=== PATIENT | female | born 1990 | race Caucasian/White ===

== ENCOUNTER → 2016-10-11 | Outpatient (CLI) | payer OTHER ==
[~2016-10-11] MED LIST: ACET50TA PO; ATOM40CA PO; IBUP-1114 PO; IBUP60TA PO; LAMI25TA PO; LATU40TA PO; MACR100C3 PO; MAPA325T2 PO; MINI1CAP PO; NICO7DIS23 TD; PRENTAB45 PO; STUACAP PO; ZYRT10CA PO; no home medications
[2016-10-11 14:40] LABS: BASO % 0.1 % (0.0-1.0); EOS # 0.1 K/mm3 (0.0-0.50); EOS % 0.9 % (0.0-3.0); LARGE UNSTAINED CELL # 0.1 K/mm3 (0.0-0.4); LARGE UNSTAINED CELL % 0.9 % (0.0-4.0); LYMPH % 15.4 % (24.0-44.0); MEAN CORPUSCULAR HEMOGLOBIN 31.8 pg (27.0-33.0); MEAN CORPUSCULAR HGB CONC 33.3 g/dl (32.0-36.5); MEAN CORPUSCULAR VOLUME 95.5 fl (80.0-96.0); MONO # 0.5 K/mm3 (0.0-0.8); MONO % 3.9 % (0.0-5.0); NEUTROPHILS # 10.4 K/mm3 (1.8-7.7); NEUTROPHILS % 78.8 % (36.0-66.0); PLATELET COUNT, AUTOMATED 357 k/mm3 (150-450); RED CELL DISTRIBUTION WIDTH 13.7 % (11.5-14.5); WHITE BLOOD COUNT 13.2 K/mm3 (4.0-10.0)
== END ==
LOC: M LAB 12:09
PROVIDERS: ATTEND Advanced Practice Midwife
DX: Z34.82 Encounter for supervision of other normal pregnancy, second trimester (principal); Z36 Encounter for antenatal screening of mother

== ENCOUNTER → 2016-12-01 | Outpatient (REF) | payer OTHER | LOC: M LAB REF 16:36 | PROVIDERS: ATTEND Advanced Practice Midwife | DX: Z34.83 Encounter for supervision of other normal pregnancy, third trimester (principal); Z36 Encounter for antenatal screening of mother ==

== ENCOUNTER → 2016-12-08 | Outpatient (REF) | payer OTHER | LOC: M LAB REF 16:30 | PROVIDERS: ATTEND Advanced Practice Midwife | DX: R03.0 Elevated blood-pressure reading, without diagnosis of hypertension (principal) ==

== ENCOUNTER 2016-12-30 12:24 | Inpatient (IN) | payer OTHER ==
[2016-12-30] VITALS (18 sets, daily range): BP systolic 106–143; BP diastolic 55–69
[~2016-12-30] VITALS: Ht 165.1 cm; Wt 95.0 kg
[~2016-12-30 12:24] MED LIST changes: +PRENTAB9 PO
[2016-12-30] MEDS ORDERED: PENICILLIN G POTASSIUM IV 5 MU in D5W MINI-BAG PLUS 100 ML IV STA (12:37)
[2016-12-30] MEDS ORDERED: OXYTOCIN DRIP 30 UNITS in APPROPRIATE DILUENT 1 EA IV SCH ×3 (12:45→19:49)
[2016-12-30] MEDS: LR 1,000 ML IV SCH ×2 (12:57→15:14)
[2016-12-30 13:19] LABS: MEAN CORPUSCULAR HEMOGLOBIN 31.4 pg (27.0-33.0); MEAN CORPUSCULAR HGB CONC 33.4 g/dl (32.0-36.5); MEAN CORPUSCULAR VOLUME 93.9 fl (80.0-96.0); RED CELL DISTRIBUTION WIDTH 14.5 % (11.5-14.5); WHITE BLOOD COUNT 10.6 K/mm3 (4.0-10.0)
[2016-12-30 13:45] LABS: ALT/SGPT 13 U/L (12-78); AST/SGOT 10 U/L (15-37); BILIRUBIN,TOTAL 0.2 MG/DL (0.2-1.0); CREATININE FOR GFR 0.44 MG/DL (0.55-1.02); GLOMERULAR FILTRATION RATE > 60.0 (>60); URIC ACID 2.9 MG/DL (2.6-6.0)
[2016-12-30] MEDS ORDERED: ACETAMINOPHEN 500 MG TAB PO PRN ×2 (14:00→20:00)
--- NOTE | 2016-12-30 14:54 | HPEPDOC ---
Obstetrical History & Physical General Date of Admission Dec 30, 2016 at 12:24 Primary Care Physician: Ty Eldridge DO History of Present Illness Patient is a 26-year-old female who is a who is 40 weeks 2 days gestation with an MARY LOU of 12/28/2016 based off her LMP and consistent with her first trimester ultrasound. Patient initiated care in her first trimester at [facility]. has been complicated by preeclampsia with severe features. Patient arrived for her routine OB appointment today with a second elevated blood pressure with recurrent headaches for the last 2 days along with a new onset of what patient describes as heartburn. Her initial high blood pressure was at 37 weeks which was 140/84 and today which was 152/86. She reports irregular contractions and active movement. She declines visual changes, leaking of fluid, or vaginal bleeding. After reviewing patient's blood pressure and symptoms with Dr. Eldrigde the plan was made with the patient to have her sent over to labor and delivery for induction of labor due to preeclampsia with severe features. Chief Complaint: Induction of labor Information Provided By: Patient Age: 26 : 5 Term: 3 Abortions: 1 Livin Care Care: Good Care Number of Visits: 13 Dating Final EDC: Dec 28, 2016 Final EDC by: LMP LMP: Mar 23, 2016 EGA at Admission: 40.2 Antepartum Course Diagnos(e)s preeclampsia with severe features Height (inches): 65 Pre- weight (lbs.): 187 Admission Weight (lbs.): 218 Change in Weight (lbs.): 31 Past Medical History Past Obstetrical History #1: Past Obstetrical History: Multigravida Gestation: 41 Type of Delivery: Spontaneous Vaginal Del. (October 2005) Sex of Infant: Male (6 lbs. 6 oz.) Complications: No Past Obstetrical History #2: Gestation: 40 Type of Delivery: Spontaneous Vaginal Del. (August 2012) Sex of : Male (weighing 8 lbs. 9 oz.) Complications: No Past Obstetrical History #3: Gestation: 39 Type of Delivery: Spontaneous Vaginal Del. (November 2014) Complications: No RIVER CAPTAIN History: Spontaneous (2005), Abnormal Pap Past Medical History Surgical History: Denies/None Family History Significant Family History: Diabetes, Hypertension, Hyperlipidemia Social History Social history Patient has a history of overdose. Marital Status: Single Family situation: Spouse/partner home Psychosocial History: Depression * Smoker: current smoker Allergies Coded Allergies: No Known Drug Allergy (Verified Allergy, Unknown, 01/09/13) Medications Scheduled Multivitamins/ ( 27-0.8 mg) 1 Tab Tab 1 TAB PO DAILY Physical Examination Physical Examination GENERAL: Alert and oriented times three. BREAST: . ABDOMEN: Gravid and non-tender to touch. FETUS: Is vertex (VTX) by sterile vaginal examination (SVE), fetus is vertex ( VTX) by Ronnell. HEART RATE: Regular rate and rhythm. LUNGS: Clear to auscultation (CTA). EXTREMITIES: No edema. No clonus. Deep tendon reflexes (DTRs) + 2. Laboratory Data 24H LABS Laboratory Tests 2 12/30/16 12:37: Serology Scanned Report Hepatitis B Testing 12/30/16 12:55: Creatinine 0.44L, Aspartate Amino Transf (AST/SGOT) 10L, Alanine Aminotransferase (ALT/SGPT) 13, Lactate Dehydrogenase 117, Total Bilirubin 0.2, Uric Acid 2.9, Glomerular Filtration Rate > 60.0 CBC/BMP Laboratory Tests 12/30/16 12:55 Aspartate Amino Transf (AST/SGOT) 10 L, Alanine Aminotransferase (ALT/SGPT) 13, Lactate Dehydrogenase 117, Total Bilirubin 0.2, Uric Acid 2.9, Red Blood Count 3.50 L, Mean Corpuscular Volume 93.9, Mean Corpuscular Hemoglobin 31.4, Mean Corpuscular Hemoglobin Concent 33.4, Red Cell Distribution Width 14.5 Urine Culture: No Growth Pertinent Laboratoy Data Blood Type: O+ RBC Antibody Screen: Negative HIV: Negative Hepatitis B: Negative Hepatitis C: Unknown Rapid Plasma Reagin: Nonreactive Rubella: Immune Chlamydia/Gonorrhea: Negative Group B Streptococcus: Positive Quad Screen Test: Declined Cystic Fibrosis: Declined Anatomy Ultrasound Ultrasound Date: Aug 11, 2016 Placenta Location: Anterior Normal Anatomy: Yes Placenta Previa: No Other Ultrasounds 12/09/2016: Growth/KAYE: IUP at 37.3 days gestation, EFW: 3254 g/7 lbs. 3 oz. 68.1% ; KAYE: 19.59; vertex, placenta anterior grade 2 Vaginal Examination Dilation: 3 cm Effacement: 75% Station: -2 Cervical Consistency: Soft Cervical Position: Anterior Presentation: Cephalic presentation Position: Vertex (occiput) Assessment Heart Rate (FHR): 130 Variability: Moderate Accelerations: Positive Decelerations: None Tocometer Contractions: Yes Frequency: irregular Multi-drug resistant Organism: No history of MDRO Assessment/Plan Assessment IUP at 40 weeks 2 days gestation Category 1 heart rate tracing GBS positive Preeclampsia with severe features Plan Admit to labor and delivery. IV and labs per order. Out of bed as tolerated. Clear liquid diet. Start GBS prophylaxis. Pitocin to be started per order. Dr. Eldridge aware of plan of care. Tylenol ordered for headache. Calcium carbonate ordered for patient's new onset of heartburn. Reviewed potential risks versus benefits of expectant management and induction of labor. Patient would like induction of labor. PFS consult due to patient's history of depression and history of drug overdose in 2016. Anticipate cervical change. Consider AROM. SHERLY WETZEL CNM Dec 30, 2016 14:54 Ty Eldridge DO Dec 30, 2016 17:50
[2016-12-30] MEDS ORDERED: FENTANYL 2MCG/ML ROPIVACAINE 0.2% NACL 250 ML CADD As Ordered ONE (16:02)
--- NOTE | 2016-12-30 16:06 | IPNPDOC ---
Obstetrical Progress Note Date of Service The patient was seen on 12/30/16 at 15:59. Progress Note SUBJECTIVE: Patient reports she is getting uncomfortable and feeling her contractions. She reports the Tylenol helped with her headache and rates it a 3.5, which is down from 7. Patient desires epidural for pain management. OBJECTIVE: FHR: 120, moderate variability, positive accelerations, no decelerations. Contractions every 1.5-4 minutes. SVE: 4/80/-2. AROM to a large amount of meconium fluid after consent from patient. Pitocin at 6 mu/min. VITAL SIGNS: Please see below. All VS have been obtained with patient in bed and on her side. ASSESSMENT: IUP at 40.2 weeks gestation, preeclampsia with severe features, Category I FHR tracing PLAN: Dr. Eldridge aware of patient's status. consult for anesthesia. Patient to obtain epidural for pain management. Will continue with Pitocin induction. VS, I&O, 24H, Fishbone Vital Signs/I&O Vital Signs Date Time Temp Pulse Resp B/P Pulse Ox O2 Delivery O2 Flow Rate FiO2 12/30/16 14:56 98.4 73 18 118/59 Laboratory Data 24H LABS Laboratory Tests 2 12/30/16 12:37: Serology Scanned Report Hepatitis B Testing 12/30/16 12:55: Creatinine 0.44L, Aspartate Amino Transf (AST/SGOT) 10L, Alanine Aminotransferase (ALT/SGPT) 13, Lactate Dehydrogenase 117, Total Bilirubin 0.2, Uric Acid 2.9, Glomerular Filtration Rate > 60.0, Syphilis Serology NONREACTIVE , Urine Random Creatinine 187.0, Urine Random Total Protein 31.5H CBC/BMP Laboratory Tests 12/30/16 12:55 Aspartate Amino Transf (AST/SGOT) 10 L, Alanine Aminotransferase (ALT/SGPT) 13, Lactate Dehydrogenase 117, Total Bilirubin 0.2, Uric Acid 2.9, Red Blood Count 3.50 L, Mean Corpuscular Volume 93.9, Mean Corpuscular Hemoglobin 31.4, Mean Corpuscular Hemoglobin Concent 33.4, Red Cell Distribution Width 14.5 SHERLY WETZEL CNM Dec 30, 2016 16:06
[2016-12-30] MEDS ORDERED: EPIDURAL COMMENT XX SCH (17:00)
[2016-12-30] MEDS ORDERED: NALOXONE INJ 0.4 MG/1 ML VIAL (J2310) IV PRN (17:00)
[2016-12-30] MEDS ORDERED: REFRIGERATOR IV KEYS XX PRN (17:00)
[2016-12-30] MEDS ORDERED: EPIDURAL/PCA KEYS XX PRN (17:00)
[2016-12-30] MEDS ORDERED: ePHEDrine SULFATE 25 MG/5 ML(5MG/ML) SYRINGE IV PRN (17:00)
[2016-12-30] MEDS ORDERED: FENTANYL/ROPIVACAINE/NACL CADD 250 ML EPIDURAL SCH (17:00)
[2016-12-30] MEDS ORDERED: PENICILLIN G POTASSIUM IV 2.5 MU in D5W 100 ML IV SCH (17:00)
[2016-12-30] MEDS ORDERED: ONDANSETRON 4MG/2ML VIAL (J2405) IV PRN (17:00)
[2016-12-30] MEDS ORDERED: diphenhydrAMINE INJ 50MG/ML VIAL (J1200) IV PRN (17:00)
[2016-12-30] MEDS ORDERED: ANUSOL HC CREAM 30GM TOP PRN (20:00)
[2016-12-30] MEDS ORDERED: METHYLERGONOVINE MALEATE 0.2 MG TAB PO PRN (20:00)
[2016-12-30] MEDS ORDERED: MEASLES,MUMPS,RUBELLA VACCINE INJ (MMR-II) (90707) SC SCH (20:00)
[2016-12-30] MEDS ORDERED: DIBUCAINE 1% OINTMENT 30GM TOP PRN (20:00)
[2016-12-30] MEDS ORDERED: RHOGAM 300 MCG (1500 IU) INJ (J2790) IM SCH (20:00)
[2016-12-30] MEDS ORDERED: PROMETHAZINE 25 MG TAB PO PRN (20:00)
[2016-12-30] MEDS ORDERED: DOCUSATE SODIUM 100 MG CAP PO PRN (20:00)
[2016-12-30 20:41] LABS: CORD GAS ABE A -1.2; CORD GAS ABE V -3.4; CORD GAS HCO3 A 26.8 MEQ/L; CORD GAS HCO3 V 22.2 MEQ/L; CORD GAS PCO2 A 57.5 mmHg; CORD GAS PCO2 V 42.1 mmHg; CORD GAS PH A 7.287 UNITS; CORD GAS PH V 7.34 UNITS; CORD GAS PO2 A 15.9 mmHg; CORD GAS PO2 V 23.2 mmHg; CORD GAS SBC A 21.7 MEQ/L; CORD GAS SBC V 20.6 MEQ/L; CORD GAS TCO2 A 28.6 MEQ/L; CORD GAS TCO2 V 23.5 MEQ/L
--- NOTE | 2016-12-30 20:42 | DN ---
DATE: 12/30/2016 DELIVERY NOTE Amanda is a 26-year-old female 5, para 3-0-1-3, who was admitted at 40-2/7 weeks gestation preeclampsia. She underwent Pitocin induction followed by artificial rupture of membrane. She then progressed to fully dilated after an epidural, delivered a live female infant in left occiput anterior position over an intact perineum. scores 9 and 9. weight 7 pounds 13 ounces. Placenta delivered spontaneously intact. Three-vessel cord. Perineum, vagina and cervix inspected. No laceration noted. Estimated blood loss 300 mL. Both mother and baby in stable condition.
[2016-12-31] MEDS: IBUPROFEN 800 MG TAB PO PRN ×2 (05:14→13:38)
[2016-12-31 06:00] VITALS: BP 122/57
[2016-12-31] MEDS ORDERED: PRENATAL VITAMIN TAB PO SCH (09:00)
[2016-12-31 18:00] VITALS: BP 122/61
[2017-01-01] MEDS: IBUPROFEN 800 MG TAB PO PRN (03:25)
[2017-01-01 05:46] VITALS: BP 131/73
[2017-01-01] MEDS ORDERED: ACET50TA PO (11:09)
[2017-01-01] MEDS ORDERED: IBUP-1114 PO (11:09)
== END 2017-01-01 15:00 | disposition home or self-care (01) | DRG 560 ==
LOC: M LDI 12:24 → M OBS 21:46
PROVIDERS: ADMIT Advanced Practice Midwife; ATTEND Advanced Practice Midwife
PROC: 10E0XZZ Delivery of Products of Conception, External Approach (ICD-10-PCS; principal; 2016-12-30)
PROC: 3E033VJ Introduction of Other Hormone into Peripheral Vein, Percutaneous Approach (ICD-10-PCS; 2016-12-30)
PROC: 10907ZC Drainage of Amniotic Fluid, Therapeutic from Products of Conception, Via Natural or Artificial Opening (ICD-10-PCS; 2016-12-30)
DX: O14.24 HELLP syndrome, complicating childbirth (principal); Z37.0 Single live birth; Z3A.40 40 weeks gestation of pregnancy; O48.0 Post-term pregnancy; O99.820 Streptococcus B carrier state complicating pregnancy

== ENCOUNTER 2017-06-13 14:13 | Emergency (ER) | payer OTHER ==
[~2017-06-13] VITALS: Ht 162.6 cm; Wt 75.0 kg
[2017-06-13 14:13] VITALS: BP 131/68
[~2017-06-13 14:13] MED LIST changes: -MACR100C3 PO; +MACR100C43 PO; +NICO7DIS2 TD; -NICO7DIS23 TD
== END 2017-06-13 16:11 | disposition left against medical advice (07) ==
LOC: M ED 14:13
DX: R10.9 Unspecified abdominal pain (principal); Z53.29 Procedure and treatment not carried out because of patient's decision for other reasons

== ENCOUNTER → 2017-09-07 | Outpatient (CLI) | payer OTHER ==
--- NOTE | 2017-09-07 11:08 | REP ---
Clinical: Anatomical evaluation. Comparison: None . Findings: Examination demonstrates a single live intrauterine in cephalic presentation. motion is identified by technologist. Placenta is noted anterior fundal and grade one without evidence for placenta previa or abruption. Amniotic fluid volume is normal. Cervix measures 3.6 cm in length and appears closed. No evidence for nuchal cord. Gestational age by LMP 25 weeks 0 days with MARY LOU 12/21/2017 . Gestational age by current measurements 24 weeks 5 days with MARY LOU 12/23/2017 . FHR equals 161 beats per minute. BPD 6.0 cm 24 weeks 3 days HC 22.3 cm 24 weeks 2 days AC 20.3 cm 24 weeks 6 days FL 4.5 cm 25 weeks 0 days HL 4.2 cm 25 weeks 0 days HC/AC ratio 1.10 Estimated weight 743 grams ( 40th percentile). Anatomical assessment demonstrates normal structures including cranium, choroid plexus, cavum, cerebellum/posterior fossa, facial features, lungs, four-chamber heart/ventricular outflow tracts, diaphragm, stomach, cord insertion/three-vessel cord, kidneys/bladder, spine, and extremities. Incidental venous lakes are identified in the placenta. Impression: 1. Single live intrauterine in cephalic presentation demonstrating appropriate growth. 2. Anatomical assessment is complete and normal. 3. Incidental venous lakes noted within the placenta. Signed by Keven Delgado MD 09/07/2017 11:00 A
== END ==
LOC: M RAD 09:47
PROVIDERS: ATTEND Nurse Practitioner Women's Health
DX: Z34.80 Encounter for supervision of other normal pregnancy, unspecified trimester (principal)

== ENCOUNTER 2017-10-08 14:45 | Inpatient (IN) | payer OTHER ==
[2017-10-08] MEDS ORDERED: HALOPERIDOL 5 MG TAB PO (16:00)
[2017-10-08] MEDS ORDERED: LORazepam 2 MG TAB PO (16:00)
[2017-10-08] MEDS: NICOTINE 21MG/24HR 1 EA TRANSDERMAL TD (18:09)
[2017-10-08] MEDS: PRENATAL VITAMINS CHEWABLE TABLET PO (21:40)
[2017-10-09] MEDS: PRENATAL VITAMINS CHEWABLE TABLET PO (08:33)
[2017-10-09] MEDS: NICOTINE 21MG/24HR 1 EA TRANSDERMAL TD (08:33)
[2017-10-10] MEDS: NICOTINE 21MG/24HR 1 EA TRANSDERMAL TD (08:19)
[2017-10-10] MEDS: PRENATAL VITAMINS CHEWABLE TABLET PO (08:19)
[2017-10-10] MEDS: MOM 30ML SUSPENSION UDC PO (09:40)
[2017-10-10] MEDS: FLUoxetine 10 MG CAP PO (09:40)
[2017-10-10 10:55] LABS: BASO % 0.3 % (0.0-1.0); EOS # 0.1 10^3/uL (0.0-0.50); EOS % 0.7 % (0.0-3.0); HEMATOCRIT 33.8 % (36.0-47.0); HEMOGLOBIN 11.5 g/dl (12.0-16.0); IMMATURE GRANULOCYTE # 0.1 10^3/uL (0-0); IMMATURE GRANULOCYTE % 0.8 % (0-0); LYMPH % 16.6 % (24.0-44.0); MEAN CORPUSCULAR HEMOGLOBIN 32.6 pg (27.0-33.0); MEAN CORPUSCULAR VOLUME 95.8 fl (80.0-96.0); MONO # 0.8 10^3/uL (0.0-0.8); MONO % 6.7 % (0.0-5.0); NEUTROPHILS % 74.9 % (36.0-66.0); PLATELET COUNT, AUTOMATED 354 10^3/uL (150-450); RED BLOOD COUNT 3.53 10^6/uL (4.00-5.40); RED CELL DISTRIBUTION WIDTH 13.8 % (11.5-14.5)
[2017-10-10 11:30] LABS: ALBUMIN 2.8 GM/DL (3.2-5.2); ALBUMIN/GLOBULIN RATIO 0.82 (1.00-1.93); ALKALINE PHOSPHATASE 121 U/L (45-117); ALT/SGPT 9 U/L (12-78); ANION GAP 8 MEQ/L (8-16); AST/SGOT 9 U/L (7-37); BILIRUBIN,TOTAL 0.2 MG/DL (0.2-1.0); BLOOD UREA NITROGEN 6 MG/DL (7-18); CALCIUM LEVEL 8.3 MG/DL (8.5-10.1); CARBON DIOXIDE LEVEL 25 MEQ/L (21-32); CHLORIDE LEVEL 106 MEQ/L (98-107); CREATININE FOR GFR 0.36 MG/DL (0.55-1.02); FREE THYROXINE INDEX 2.5 % (1.3-4.8); GLOMERULAR FILTRATION RATE > 60.0 (>60); GLUCOSE, FASTING 80 MG/DL (70-105); SODIUM LEVEL 139 MEQ/L (136-145); T UPTAKE 20 % (30-39); THYROXINE (T4) 12.4 UG/DL (4.5-12.0); TOTAL PROTEIN 6.2 GM/DL (6.4-8.2)
[2017-10-11] MEDS: MAALOX 30 ML SUSP *UDC PO (00:19)
[2017-10-11] MEDS: NICOTINE 21MG/24HR 1 EA TRANSDERMAL TD (09:32)
[2017-10-11] MEDS: FLUoxetine 10 MG CAP PO (09:32)
[2017-10-11] MEDS: PRENATAL VITAMINS CHEWABLE TABLET PO (09:32)
[2017-10-12 08:29] LABS: HEMATOCRIT 33.5 % (36.0-47.0); HEMOGLOBIN 11.3 g/dl (12.0-16.0); MEAN CORPUSCULAR HEMOGLOBIN 32.2 pg (27.0-33.0); MEAN CORPUSCULAR HGB CONC 33.7 g/dl (32.0-36.5); MEAN CORPUSCULAR VOLUME 95.4 fl (80.0-96.0); PLATELET COUNT, AUTOMATED 339 10^3/uL (150-450); RED BLOOD COUNT 3.51 10^6/uL (4.00-5.40); RED CELL DISTRIBUTION WIDTH 14.2 % (11.5-14.5); WHITE BLOOD COUNT 13.4 10^3/uL (4.0-10.0)
[2017-10-12] MEDS: FLUoxetine 10 MG CAP PO (08:58)
[2017-10-12] MEDS: PRENATAL VITAMINS CHEWABLE TABLET PO (08:58)
[2017-10-12] MEDS: NICOTINE 21MG/24HR 1 EA TRANSDERMAL TD (08:59)
[2017-10-12] MEDS: DOCUSATE SODIUM 100 MG CAP PO (10:04)
[2017-10-12] MEDS: CEPACOL LOZENGE PO ×2 (10:04→18:38)
[2017-10-12] MEDS: traZODone 50 MG TAB PO (23:51)
[2017-10-13] MEDS: NICOTINE 21MG/24HR 1 EA TRANSDERMAL TD (09:12)
[2017-10-13] MEDS: FLUoxetine 10 MG CAP PO (09:12)
[2017-10-13] MEDS: PRENATAL VITAMINS CHEWABLE TABLET PO (09:12)
[2017-10-13] MEDS: CEPACOL LOZENGE PO (09:13)
[2017-10-14] MEDS: FLUoxetine 10 MG CAP PO (08:24)
[2017-10-14] MEDS: NICOTINE 21MG/24HR 1 EA TRANSDERMAL TD (08:24)
[2017-10-14] MEDS: PRENATAL VITAMINS CHEWABLE TABLET PO (08:24)
[2017-10-14] MEDS: CEPACOL LOZENGE PO (19:47)
[2017-10-14] MEDS: SODIUM CHLORIDE NASAL 0.65% SPRAY BTL (OCEAN) (19:51)
[2017-10-14] MEDS: ACETAMINOPHEN TAB 650MG DOSE (2X325MG) PO (19:52)
[2017-10-15] MEDS: NICOTINE 21MG/24HR 1 EA TRANSDERMAL TD (09:22)
[2017-10-15] MEDS: FLUoxetine 10 MG CAP PO (09:22)
[2017-10-15] MEDS: PRENATAL VITAMINS CHEWABLE TABLET PO (09:22)
[2017-10-15] MEDS: CEPACOL LOZENGE PO (09:23)
[2017-10-16] MEDS: FLUoxetine 10 MG CAP PO (08:56)
[2017-10-16] MEDS: NICOTINE 21MG/24HR 1 EA TRANSDERMAL TD (08:56)
[2017-10-16] MEDS: PRENATAL VITAMINS CHEWABLE TABLET PO (08:56)
[2017-10-17] MEDS: PRENATAL VITAMINS CHEWABLE TABLET PO (08:48)
[2017-10-17] MEDS: FLUoxetine 10 MG CAP PO (08:48)
[2017-10-17] MEDS: NICOTINE 21MG/24HR 1 EA TRANSDERMAL TD (08:48)
[2017-10-18] MEDS: FLUoxetine 10 MG CAP PO (08:33)
[2017-10-18] MEDS: PRENATAL VITAMINS CHEWABLE TABLET PO (08:33)
[2017-10-18] MEDS: NICOTINE 21MG/24HR 1 EA TRANSDERMAL TD (09:00)
== END 2017-10-18 12:50 | disposition home or self-care (01) | DRG 566 ==
LOC: M PSY 14:45
DX: O99.343 Other mental disorders complicating pregnancy, third trimester (principal); F41.9 Anxiety disorder, unspecified; G47.00 Insomnia, unspecified; F33.1 Major depressive disorder, recurrent, moderate; F17.210 Nicotine dependence, cigarettes, uncomplicated; Z3A.30 30 weeks gestation of pregnancy

== ENCOUNTER → 2017-12-11 | Outpatient (CLI) | payer OTHER | LOC: M RAD 12:26 | DX: Z34.93 Encounter for supervision of normal pregnancy, unspecified, third trimester (principal) | CPT/HCPCS: 76815 ==

== ENCOUNTER 2018-10-17 16:38 | Emergency (ER) | payer OTHER ==
[~2018-10-17] VITALS: Ht 162.6 cm; Wt 97.2 kg
[~2018-10-17 16:38] MED LIST changes: -ACET50TA PO; +FLUO20TA28 PO; +MAPA500T2 PO; +TRAZ-160 PO; +VITACHTA PO
[2018-10-17 17:57] VITALS: BP 135/63
[2018-10-17] MEDS ORDERED: CHERSYP3 PO ×2 (18:01→20:01)
[2018-10-17] MEDS ORDERED: MUCI120T PO (18:01)
[2018-10-17] MEDS ORDERED: TESS100C PO (18:01)
[2018-10-17] MEDS ORDERED: PROAAER10 INH (18:01)
[2018-10-17] MEDS ORDERED: IBUPROFEN 600 MG TAB PO ONE (18:15)
== END 2018-10-17 18:12 | disposition home or self-care (01) ==
LOC: M ED 16:38
DX: J06.9 Acute upper respiratory infection, unspecified (principal); B34.9 Viral infection, unspecified; F17.210 Nicotine dependence, cigarettes, uncomplicated

== ENCOUNTER 2019-05-08 13:24 | Emergency (ER) | payer OTHER ==
[~2019-05-08] VITALS: Ht 162.6 cm; Wt 95.9 kg
[~2019-05-08 13:24] MED LIST changes: +CHERSYP3 PO; +IBUP600T42 PO; -IBUP60TA PO; +MUCI120T PO; +PROAAER10 INH; +TESS100C PO; -TRAZ-160 PO; +TRAZ-252 PO
[2019-05-08] MEDS ORDERED: BENA25CA4 PO (13:34)
[2019-05-08] MEDS ORDERED: AMOX500T PO (13:34)
[2019-05-08] MEDS ORDERED: prenatal PO (13:34)
[2019-05-08 14:05] LABS: HEMATOCRIT 36.3 % (36.0-47.0); HEMOGLOBIN 12.5 g/dl (12.0-15.5); MEAN CORPUSCULAR HEMOGLOBIN 31.5 pg (27.0-33.0); MEAN CORPUSCULAR HGB CONC 34.4 g/dl (32.0-36.5); MEAN CORPUSCULAR VOLUME 91.4 fl (80.0-96.0); PLATELET COUNT, AUTOMATED 407 10^3/uL (150-450); RED BLOOD COUNT 3.97 10^6/uL (4.00-5.40); WHITE BLOOD COUNT 12.3 10^3/uL (4.0-10.0)
[2019-05-08 14:35] LABS: AMPHETAMINES LEVEL URINE NEGATIVE (NEGATIVE); BARBITURATES URINE NEGATIVE (NEGATIVE); BENZODIAZEPINES URINE NEGATIVE (NEGATIVE); CANNABINOIDS URINE POSITIVE (NEGATIVE); COCAINE METABOLITE URINE NEGATIVE (NEGATIVE); METHADONE URINE NEGATIVE (NEGATIVE); OPIATES URINE NEGATIVE (NEGATIVE); PHENCYCLIDINE URINE NEGATIVE (NEGATIVE)
[2019-05-08 14:42] LABS: ACETAMINOPHEN LEVEL < 2.0 UG/ML (10.0-30.0); ALBUMIN 2.7 GM/DL (3.2-5.2); ALT/SGPT 10 U/L (12-78); BILIRUBIN,DIRECT < 0.1 MG/DL (0.0-0.2); BILIRUBIN,TOTAL 0.3 MG/DL (0.2-1.0); BLOOD UREA NITROGEN 6 MG/DL (7-18); CALCIUM LEVEL 8.8 MG/DL (8.5-10.1); CARBON DIOXIDE LEVEL 23 MEQ/L (21-32); CHLORIDE LEVEL 106 MEQ/L (98-107); CREATININE FOR GFR 0.41 MG/DL (0.55-1.30); ETHYL ALCOHOL (ETHANOL) < 0.003 % (0.000-0.010); GLOMERULAR FILTRATION RATE > 60.0 (>60); GLUCOSE, FASTING 87 MG/DL (70-100); POTASSIUM SERUM 3.6 MEQ/L (3.5-5.1); SALICYLATE LEVEL < 1.7 MG/DL (5.0-30.0); SODIUM LEVEL 138 MEQ/L (136-145); TOTAL PROTEIN 6.8 GM/DL (6.4-8.2)
[2019-05-08 15:07] VITALS: BP 99/49
== END 2019-05-08 15:23 | disposition home or self-care (01) ==
LOC: M ED 13:24
DX: O99.332 Smoking (tobacco) complicating pregnancy, second trimester (principal); O99.322 Drug use complicating pregnancy, second trimester; Z3A.17 17 weeks gestation of pregnancy; Z79.899 Other long term (current) drug therapy
CPT/HCPCS: 36415; 80048; 80076; 80307; 84443; 85027; 99284; G0480

== ENCOUNTER 2019-07-17 15:58 | Emergency (ER) | payer OTHER ==
[~2019-07-17] VITALS: Ht 162.6 cm; Wt 77.3 kg
[~2019-07-17 15:58] MED LIST changes: +AMOX500T PO; +BENA25CA4 PO; +prenatal PO
[2019-07-17] MEDS ORDERED: prenatal vit (16:04)
[2019-07-17 17:05] LABS: HEMATOCRIT 34.8 % (36.0-47.0); HEMOGLOBIN 11.7 g/dl (12.0-15.5); MEAN CORPUSCULAR HEMOGLOBIN 31.9 pg (27.0-33.0); MEAN CORPUSCULAR HGB CONC 33.6 g/dl (32.0-36.5); MEAN CORPUSCULAR VOLUME 94.8 fl (80.0-96.0); PLATELET COUNT, AUTOMATED 370 10^3/uL (150-450); RED BLOOD COUNT 3.67 10^6/uL (4.00-5.40); WHITE BLOOD COUNT 12.1 10^3/uL (4.0-10.0)
[2019-07-17 17:25] LABS: AMPHETAMINES LEVEL URINE NEGATIVE (NEGATIVE); BARBITURATES URINE NEGATIVE (NEGATIVE); BENZODIAZEPINES URINE NEGATIVE (NEGATIVE); CANNABINOIDS URINE POSITIVE (NEGATIVE); COCAINE METABOLITE URINE NEGATIVE (NEGATIVE); METHADONE URINE NEGATIVE (NEGATIVE); OPIATES URINE NEGATIVE (NEGATIVE); PHENCYCLIDINE URINE NEGATIVE (NEGATIVE)
[2019-07-17 17:34] LABS: ACETAMINOPHEN LEVEL < 2.0 UG/ML (10.0-30.0); ALBUMIN 2.6 GM/DL (3.2-5.2); ALT/SGPT 13 U/L (12-78); BILIRUBIN,DIRECT < 0.1 MG/DL (0.0-0.2); BILIRUBIN,TOTAL 0.2 MG/DL (0.2-1.0); BLOOD UREA NITROGEN 7 MG/DL (7-18); CALCIUM LEVEL 8.7 MG/DL (8.5-10.1); CARBON DIOXIDE LEVEL 22 MEQ/L (21-32); CHLORIDE LEVEL 108 MEQ/L (98-107); CREATININE FOR GFR 0.45 MG/DL (0.55-1.30); ETHYL ALCOHOL (ETHANOL) < 0.003 % (0.000-0.010); GLOMERULAR FILTRATION RATE > 60.0 (>60); GLUCOSE, FASTING 100 MG/DL (70-100); POTASSIUM SERUM 3.5 MEQ/L (3.5-5.1); SALICYLATE LEVEL 2.8 MG/DL (5.0-30.0); SODIUM LEVEL 140 MEQ/L (136-145)
[2019-07-17 23:27] VITALS: BP 107/55
--- NOTE | 2019-07-18 10:51 | ECGEPIP ---
[facility] - ED Test Date: 2019-07-17 Pat Name: MAURA RODNEY Department: Room: - Gender: Female Chromium Plater: JYash : 1990 Requested By: Wen Hayward Order Number: [id number] Reading MD: Wen Hayward Measurements Intervals [place] Rate: 63 P: 57 CO: 169 QRS: 32 QRSD: 109 T: 23 QT: 386 QTc: 395 Interpretive Statements SINUS RHYTHM WITH SINUS ARRHYTHMIA DECREASED RATE 10/07/17 Electronically Signed on 07-18-2019 10:51:08 EDT by Wen Hayward
== END 2019-07-17 23:32 ==
LOC: M ED 15:58
DX: O99.343 Other mental disorders complicating pregnancy, third trimester (principal); R45.851 Suicidal ideations; Z3A.27 27 weeks gestation of pregnancy; R94.31 Abnormal electrocardiogram [ECG] [EKG]
CPT/HCPCS: 36415; 80048; 80076; 80307; 81001; 84443; 85027; 87086; 93005; 99284; G0480

== ENCOUNTER → 2019-08-16 | Outpatient (CLI) | payer OTHER ==
[~2019-08-16] MED LIST changes: +prenatal vit
--- NOTE | 2019-08-16 10:09 | REP ---
Obstetric ultrasound for anatomy: There is a single intrauterine gestation in a breech presentation. There is movement and cardiac activity. The heart rate is 155 beats per minute. The placenta is anterior. There is no placenta previa or abruptio. The placenta is grade 01-02. Subjectively the amniotic fluid volume is normal. The amniotic fluid index is 18.5/8.6 - 24.2. Cervix measures 4.8 cm length. Gestational age by today's ultrasound is 31 weeks 6 days/MARY LOU 10/12/2019. Gestational age by LMP is 32 weeks 1 day/MARY LOU 10/10/2019. weight is 1143 grams/4 pounds, 0 ounces. This is the 37 percentile for 32 weeks 1 day. The following anatomic structures are identified and are unremarkable: Cranium, choroid plexus, cavum septum pellucidum, cerebellum, lungs, four-chamber heart, cardiac left ventricular outflow tract, diaphragm, stomach, cord insertion, three-vessel cord, kidneys, bladder and lower extremities. Suboptimally demonstrated because of position and gestational age are the facial features, cardiac right ventricular outflow tract, spine and upper extremities. Electronically Signed by Jose Coyle MD 08/16/2019 10:00 A
[2019-08-16 11:02] LABS: BASO % 0.2 % (0.0-1.0); EOS # 0.2 10^3/uL (0.0-0.5); EOS % 1.5 % (0.0-3.0); HEMATOCRIT 33.9 % (36.0-47.0); LYMPH # 2.6 10^3/uL (1.5-5.0); LYMPH % 23.2 % (24.0-44.0); MEAN CORPUSCULAR HEMOGLOBIN 31.2 pg (27.0-33.0); MEAN CORPUSCULAR HGB CONC 32.4 g/dl (32.0-36.5); MONO # 0.6 10^3/uL (0.0-0.8); MONO % 5.4 % (0.0-5.0); NEUTROPHILS # 7.6 10^3/uL (1.5-8.5); NEUTROPHILS % 69.2 % (36.0-66.0); PLATELET COUNT, AUTOMATED 332 10^3/uL (150-450); RED BLOOD COUNT 3.53 10^6/uL (4.00-5.40)
[2019-08-16 11:25] LABS: BLOOD UREA NITROGEN 5 MG/DL (7-18); CALCIUM LEVEL 8.2 MG/DL (8.5-10.1); CARBON DIOXIDE LEVEL 23 MEQ/L (21-32); CHLORIDE LEVEL 108 MEQ/L (98-107); CREATININE FOR GFR 0.44 MG/DL (0.55-1.30); GLOMERULAR FILTRATION RATE > 60.0 (>60); GLUCOSE CHALLENGE TEST 1 HOUR 131 MG/DL (LESS THAN 140); GLUCOSE, FASTING 131 MG/DL (70-100); POTASSIUM SERUM 3.5 MEQ/L (3.5-5.1); SODIUM LEVEL 139 MEQ/L (136-145)
[2019-08-16 11:46] LABS: RUBELLA IgG QUALITATIVE IMMUNE (IMMUNE)
[2019-08-16 12:15] LABS: HIV 1&2 SCREEN CENTAUR NEGATIVE (NEGATIVE)
[2019-08-16 12:44] LABS: CHLAMYDIA DNA AMPLIFICATION NEGATIVE (NEGATIVE); GC DNA AMPLIFICATION NEGATIVE (NEGATIVE)
== END ==
LOC: M RAD 08:44
PROVIDERS: ATTEND Advanced Practice Midwife
DX: Z34.83 Encounter for supervision of other normal pregnancy, third trimester (principal); Z3A.30 30 weeks gestation of pregnancy

== ENCOUNTER → 2019-08-27 | Outpatient (REF) | payer OTHER | LOC: M LAB REF 16:59 | PROVIDERS: ATTEND Advanced Practice Midwife | DX: O09.43 Supervision of pregnancy with grand multiparity, third trimester (principal); Z3A.00 Weeks of gestation of pregnancy not specified ==

== ENCOUNTER → 2019-09-11 | Outpatient (REF) | payer OTHER | LOC: M SFHCWAGY 18:12 | PROVIDERS: ATTEND Advanced Practice Midwife | DX: Z33.1 Pregnant state, incidental (principal) ==

== ENCOUNTER 2019-09-15 17:37 | Outpatient (CLI) | payer OTHER ==
[~2019-09-15] VITALS: Ht 162.6 cm; Wt 96.3 kg
[2019-09-15 18:02] VITALS: BP 128/64
== END 2019-09-15 18:45 | disposition home or self-care (01) ==
LOC: M LDO 17:37
PROVIDERS: ATTEND Specialist
DX: O26.853 Spotting complicating pregnancy, third trimester (principal); R10.30 Lower abdominal pain, unspecified; O47.02 False labor before 37 completed weeks of gestation, second trimester; Z3A.35 35 weeks gestation of pregnancy

== ENCOUNTER → 2019-09-16 | Outpatient (CLI) | payer OTHER ==
--- NOTE | 2019-09-16 09:39 | REP ---
OB ULTRASOUND: Real-time sonographic evaluation of the gravid uterus performed. There is a single living intrauterine gestation with an estimated gestational age 36 weeks 4 days, EDC 10/10/2019. Today's measurements indicate appropriate growth. Biometry and Growth: BPD 86 mm = 34 weeks 3 days, 19th percentile HC 319 mm = 35 weeks 6 days, 39th percentile AC 322 mm = 26 weeks 1 day, 43rd percentile FL 70 mm = 35 weeks 5 days, 37th percentile. HC/AC ratio 0.99 within normal limits. Estimated weight 2774 grams, 39th percentile. SEEN/GROSSLY UNREMARKABLE Lateral ventricles Yes Posterior fossa Yes Upper lip Yes Four-chamber heart Yes LVOT Yes RVOT Yes Stomach Yes Cord insertion Yes Three vessel cord Yes Kidneys Yes Bladder Yes Spine No Cervical length: Cervix is not visualized due to shadowing from the cranium. heart rate: 142 beats per minute. position: Vertex. Placenta: Anterior and grade 2 with no previa or abruption. Amniotic fluid: Within normal limits. KAYE 8.1, normal range 7.6-24.6. S/D Ratio: 2.65 within normal range of 1.76 to 2.76. RI: 0.62 within normal range of 0.59 to 0.75. Electronically Signed by Jose Urbina MD 09/16/2019 03:47 P
== END ==
LOC: M RAD 07:23
PROVIDERS: ATTEND Advanced Practice Midwife
DX: O09.43 Supervision of pregnancy with grand multiparity, third trimester (principal); Z3A.36 36 weeks gestation of pregnancy

== ENCOUNTER → 2019-09-26 | Outpatient (REF) | payer OTHER ==
[2019-09-27 11:37] LABS: AMPHETAMINES URINE REFLEX NEGATIVE (NEGATIVE); BARBITURATES URINE REFLEX NEGATIVE (NEGATIVE); BENZODIAZEPINES URINE REFLEX NEGATIVE (NEGATIVE); COCAINE METABOLITE URINE REFLE NEGATIVE (NEGATIVE); METHADONE URINE REFLEX NEGATIVE (NEGATIVE); OPIATES URINE REFLEX NEGATIVE (NEGATIVE); PHENCYCLIDINE URINE REFLEX NEGATIVE (NEGATIVE)
[2019-09-27 12:51] LABS: CANNABINOIDS URINE REFLEX PENDING CONFIRMATION (NEGATIVE)
== END ==
LOC: M SFHCWAGY 10:30
PROVIDERS: ATTEND Advanced Practice Midwife
DX: Z34.93 Encounter for supervision of normal pregnancy, unspecified, third trimester (principal)
CPT/HCPCS: 80307; G0480

== ENCOUNTER → 2019-09-26 | Outpatient (CLI) | payer OTHER | LOC: M PLALAB 14:37 | PROVIDERS: ATTEND Advanced Practice Midwife | DX: Z34.93 Encounter for supervision of normal pregnancy, unspecified, third trimester (principal) ==

== ENCOUNTER → 2019-10-04 | Outpatient (CLI) | payer OTHER ==
[2019-10-04 18:38] LABS: HEMOGLOBIN A1c 4.7 %
== END ==
LOC: M PLALAB 14:35
PROVIDERS: ATTEND Advanced Practice Midwife
DX: Z34.03 Encounter for supervision of normal first pregnancy, third trimester (principal)

== ENCOUNTER 2019-10-10 08:00 | Outpatient (CLI) | payer OTHER ==
[~2019-10-10] VITALS: Ht 162.6 cm; Wt 95.1 kg
[2019-10-10 08:24] VITALS: BP 125/58
== END 2019-10-10 09:15 | disposition home or self-care (01) ==
LOC: M LDO 08:00
PROVIDERS: ATTEND Specialist
DX: O26.893 Other specified pregnancy related conditions, third trimester (principal); O47.1 False labor at or after 37 completed weeks of gestation; Z3A.38 38 weeks gestation of pregnancy

== ENCOUNTER 2019-10-15 11:08 | Inpatient (IN) | payer OTHER ==
[2019-10-15] VITALS (22 sets, daily range): BP systolic 105–133; BP diastolic 55–72
[~2019-10-15] VITALS: Ht 162.6 cm; Wt 94.5 kg
[2019-10-15] MEDS ORDERED: PRENTAB9 PO (11:24)
[2019-10-15] MEDS ORDERED: LACTATED RINGER'S 1000 ML IV STA (12:25)
[2019-10-15] MEDS ORDERED: OXYTOCIN DRIP 30 UNITS in IV 1 EA IV SCH ×2 (12:45→20:00)
[2019-10-15 12:50] LABS: HEMATOCRIT 35.3 % (36.0-47.0); HEMOGLOBIN 11.8 g/dl (12.0-15.5); MEAN CORPUSCULAR HEMOGLOBIN 30.9 pg (27.0-33.0); MEAN CORPUSCULAR HGB CONC 33.4 g/dl (32.0-36.5); MEAN CORPUSCULAR VOLUME 92.4 fl (80.0-96.0); PLATELET COUNT, AUTOMATED 369 10^3/uL (150-450); RED BLOOD COUNT 3.82 10^6/uL (4.00-5.40); WHITE BLOOD COUNT 10.8 10^3/uL (4.0-10.0)
[2019-10-15] MEDS ORDERED: FENTANYL 2MCG/ML ROPIVACAINE 0.2% IN 0.9% NACL 100ML IVBAG As Ordered ONE (13:48)
[2019-10-15] MEDS: LR 1,000 ML IV SCH ×2 (14:08→18:31)
[2019-10-15 15:00] LABS: AMPHETAMINES URINE REFLEX NEGATIVE (NEGATIVE); BARBITURATES URINE REFLEX NEGATIVE (NEGATIVE); BENZODIAZEPINES URINE REFLEX NEGATIVE (NEGATIVE); CANNABINOIDS URINE REFLEX NEGATIVE (NEGATIVE); COCAINE METABOLITE URINE REFLE NEGATIVE (NEGATIVE); METHADONE URINE REFLEX NEGATIVE (NEGATIVE); OPIATES URINE REFLEX NEGATIVE (NEGATIVE); PHENCYCLIDINE URINE REFLEX NEGATIVE (NEGATIVE)
[2019-10-15] MEDS ORDERED: EPIDURAL/PCA KEYS XX PRN (15:00)
[2019-10-15] MEDS ORDERED: ONDANSETRON 4MG/2ML VIAL (J2405) IV PRN ×2 (15:00→20:00)
[2019-10-15] MEDS ORDERED: FENTANYL/ROPIVACAINE/NACL BAG 100 ML EPIDURAL SCH (15:00)
[2019-10-15] MEDS ORDERED: NALOXONE INJ 0.4 MG/1 ML VIAL (J2310) IV PRN (15:00)
[2019-10-15] MEDS ORDERED: ePHEDrine SULFATE 25 MG/5 ML(5MG/ML) SYRINGE IV PRN (15:00)
[2019-10-15] MEDS ORDERED: REFRIGERATOR IV KEYS XX PRN (15:00)
[2019-10-15] MEDS ORDERED: EPIDURAL COMMENT XX SCH (15:00)
[2019-10-15] MEDS ORDERED: diphenhydrAMINE INJ 50MG/ML VIAL (J1200) IV PRN (15:00)
[2019-10-15] MEDS ORDERED: LACTATED RINGER'S 1000 ML IV PRN (15:00)
[2019-10-15] MEDS ORDERED: DOCUSATE SODIUM 100 MG CAP PO PRN (20:00)
[2019-10-15] MEDS ORDERED: LR 1,000 ML IV SCH (20:00)
[2019-10-15] MEDS ORDERED: IBUPROFEN 800 MG TAB PO PRN (20:00)
[2019-10-15] MEDS ORDERED: ACETAMINOPHEN 500 MG TAB PO PRN (20:00)
[2019-10-15] MEDS ORDERED: DIBUCAINE 1% OINTMENT 30GM TOP PRN (20:00)
[2019-10-15] MEDS ORDERED: MEASLES,MUMPS,RUBELLA VACCINE INJ (MMR-II) (90707) SC SCH (20:00)
[2019-10-15] MEDS ORDERED: IBUPROFEN 600 MG TAB PO PRN (20:00)
[2019-10-15] MEDS ORDERED: ACETAMINOPHEN TAB 650MG DOSE (2X325MG) PO PRN (20:00)
[2019-10-15] MEDS ORDERED: PROMETHAZINE 25 MG TAB PO PRN (20:00)
[2019-10-15] MEDS ORDERED: RHOGAM 300 MCG (1500 IU) INJ (J2790) IM SCH (20:00)
[2019-10-16 06:00] VITALS: BP 110/61
[2019-10-16] MEDS ORDERED: medroxyPROGESTERone ACET IM SUSP 150 MG/ML VIAL (J1050) IM ONE (08:45)
[2019-10-16] MEDS ORDERED: PRENATAL VITAMINS CHEWABLE TABLET PO SCH (09:00)
== END 2019-10-16 21:30 | disposition home or self-care (01) | DRG 560 ==
LOC: M LDO 11:08 → M LDI 11:33 → M OBS 21:48
PROVIDERS: ADMIT Obstetrics & Gynecology; ATTEND Obstetrics & Gynecology
PROC: 10E0XZZ Delivery of Products of Conception, External Approach (ICD-10-PCS; principal; 2019-10-15)
DX: O42.02 Full-term premature rupture of membranes, onset of labor within 24 hours of rupture (principal); Z37.0 Single live birth; Z3A.39 39 weeks gestation of pregnancy

== ENCOUNTER 2020-01-01 17:17 | Inpatient (IN) | payer OTHER ==
[~2020-01-01] VITALS: Ht 167.6 cm; Wt 77.3 kg
[2020-01-01 18:20] LABS: HEMATOCRIT 41.5 % (36.0-47.0); HEMOGLOBIN 13.7 g/dl (12.0-15.5); MEAN CORPUSCULAR HEMOGLOBIN 30.1 pg (27.0-33.0); MEAN CORPUSCULAR VOLUME 91.2 fl (80.0-96.0); PLATELET COUNT, AUTOMATED 427 10^3/uL (150-450); RED BLOOD COUNT 4.55 10^6/uL (4.00-5.40); WHITE BLOOD COUNT 7.9 10^3/uL (4.0-10.0)
[2020-01-01 18:49] LABS: AMPHETAMINES LEVEL URINE POSITIVE (NEGATIVE); BARBITURATES URINE NEGATIVE (NEGATIVE); BENZODIAZEPINES URINE NEGATIVE (NEGATIVE); CANNABINOIDS URINE POSITIVE (NEGATIVE); COCAINE METABOLITE URINE NEGATIVE (NEGATIVE); METHADONE URINE NEGATIVE (NEGATIVE); OPIATES URINE NEGATIVE (NEGATIVE); PHENCYCLIDINE URINE NEGATIVE (NEGATIVE)
[2020-01-01 18:54] LABS: ACETAMINOPHEN LEVEL < 2.0 UG/ML (10.0-30.0); ALT/SGPT 44 U/L (12-78); BILIRUBIN,DIRECT 0.1 MG/DL (0.0-0.2); BILIRUBIN,TOTAL 0.6 MG/DL (0.2-1.0); BLOOD UREA NITROGEN 8 MG/DL (7-18); CALCIUM LEVEL 9.5 MG/DL (8.5-10.1); CARBON DIOXIDE LEVEL 26 MEQ/L (21-32); CHLORIDE LEVEL 106 MEQ/L (98-107); ETHYL ALCOHOL (ETHANOL) 0.003 % (0.000-0.010); GLOMERULAR FILTRATION RATE > 60.0 (>60); GLUCOSE, FASTING 92 MG/DL (70-100); POTASSIUM SERUM 3.6 MEQ/L (3.5-5.1); SALICYLATE LEVEL < 1.7 MG/DL (5.0-30.0); SODIUM LEVEL 141 MEQ/L (136-145); THYROID STIMULATING HORMONE 0.062 uIU/ML (0.358-3.740); TOTAL PROTEIN 7.5 GM/DL (6.4-8.2)
[2020-01-01] MEDS ORDERED: MAALOX 30 ML SUSP *UDC PO PRN (19:45)
[2020-01-01] MEDS ORDERED: traZODone 50 MG TAB PO PRN (19:45)
[2020-01-01] MEDS ORDERED: MOM 30ML SUSPENSION UDC PO PRN (19:45)
[2020-01-01] MEDS ORDERED: ACETAMINOPHEN TAB 650MG DOSE (2X325MG) PO PRN (19:45)
[2020-01-01 20:39] VITALS: BP 127/69
[2020-01-02 06:15] VITALS: BP 137/85
--- NOTE | 2020-01-02 10:08 | MHHPEPDOC ---
General Date Of Admission: Jan 01, 2020 Legal Status: 9.39 Chief Complaint "I wrote a suicide note." History of Present Illness HISTORY OF THE PRESENT ILLNESS: Patient is a 29 -year-old , female, with a psych history of depression and SI [facility] who was bought to ED by PD on 9.41 due to writing suicide note that she did not bring with her to the hospital. In the ED pt admitted to writing the suicide note and stated "if I would do I would plan to OD." Per PD officer pt has 5 children present with her mother. Pt's boyfriend's daughter called the ED and ED and pt spoke with her. She informed ED that she hear from her father, the pt's boyfriend, that she was here due to attempting suicide, as the pt and her boyfriend of 11yrs, father of pt's 5 kids, broke-up yesterday. Pt's boyfriend lives near [place] and called CPS on the pt. Pt endorsed family issues regarding her boyfriend the father of her son's and recently smoking marijuana with a friend she and let stay with her and her boyfriend thought it had been laced by the friend with an unknown substance. Pt denied active thoughts of suicide in the ED but that she had a plan to take some pills. Pt stated she laid down to take a nap and "sleep it all off" but was woken by the PD. Psychiatric Review of Systems Depression (2 or more weeks): depressed mood, difficulty concentrating, suicidal thoughts Roselyn (4 or more days of): denies Psychosis: denies PTSD: denies Anxiety: situational anxiety, stressor related anxiety Anxiety/ 6 months or more of: difficulty concentrating, irritability, personality cluster A,BC (b) Past Psychiatric History Previous Psychiatric Diagnosis: depression, hx of SA via OD Previous Psychiatric Admissions: [facility] past, the [facility], last d/c from [facility] 08/17/19 Suicide Attempts: OD x2 last on zoloft 10/08/17 Psychiatric Follow-up: none currently Psychiatric medications: none currently, has been on lamictal, latuda, straterra, prazosin in the past Past Medical History Medical Problems cryosurgery 2016 Head Injury: No Seizures: No Hospitalizations: No Surgeries: Yes Family Medical/Psychiatric HX Medical Problems noncontributory Psychiatric Disorders: No Addiction: No Suicide Attemps/Completions: No Addiction History nicotine, amphetamines (utox positive), other (utox pos cannabis) Social History Childhood: born and raised in [place] by her mother mostly with 5 siblings. Maintains a good relationship with her family Abuse/Trauma:denies Current Living Situation: lives in [place] with her kids Education: 9th grade edu Employment: unemployed Social Support: family, boyfriend Legal: CPS called by pt's boyfriend Marital: boyfriend for 11yrs that is the father of her 5 kids. Boyfriend lives near [place]. Mental Status Examination General Appearance: unkempt, disheveled, appears stated age, hospital scubs/clothing Build: average Demeanor: withdrawn Eye Contact: fair Activity: slowed Behavior: cooperative, withdrawn Speech: clear, low in volume Mood: depressed Mood "down" Affect: constricted, flat, congruent Thought Process: logical/linear, depressed, intact Thought Content (Delusions): none reported, denies SI, HI, AVH Thought Content (Other): none reported, appropriate Thought Content (Aggressive): none reported Perception (Hallucinations): none reported Perception (Other): none reported Cognition (Impairment of): none reported Cognition(Intelligence Est.): average Oriented: Awake, Alert, Oriented times three Insight: fair Judgment: Fair Psychosis: Denies Diagnoses Major depression, recurrent, moderate, w/o psychosis cannabis/amphetamine use d/o R/O borderline personality d/o A-FIB/CHADSVASC A-FIB History Current/History of A-Fib/PAF?: No Assessment Pt seen and states she feels depressed and had written a note about "how I was done with everything" and "had a thought to OD." States she and her boyfriend broke-up a while and that it contributes to her low mood. States she feels she would benefit from an antidepressant medication as she is not on any currently but is unable to recall if any that she was on previously were beneficial. Asked pt about prozac and she states she believes it may have been helpful and is agreeable to starting it here. She appears depressed and flat. She currently denies SI/HI, hallucinations, delusions. Feels safe here. Initial Treatment Plan 1. Patient was admitted on a 9.39 status. 2. Complete history was obtained. 3. With patients permission, family will be contacted and database will be expanded. 4. Patients medication regimen will be reviewed and changed accordingly. 5. Patient will be provided with protected environment. 6. Patient will be treated with individual, group, and milieu therapies. 7. Patient will receive supportive psych-education. 8. Discharge planning will commence immediately. 9. Outpatient follow-up treatment will be strongly recommended. 10. The initial treatment plan will focus initially on: * Depression. * Risk for suicide. 11. prozac 20mg daily ESTIMATED LENGTH OF STAY: 3-5 DAYS. TIME SPENT COUNSELING AND COORDINATING INITIAL CARE: 60 minutes. Vital Signs Vital Signs Date Time Temp Pulse Resp B/P (MAP) Pulse Ox O2 Delivery O2 Flow Rate FiO2 01/02/20 08:42 Room Air 01/02/20 06:15 97.7 62 18 137/85 (102) 01/01/20 20:39 98 Laboratory Data 24H Labs Laboratory Tests 2 01/01/20 17:55: Nucleated Red Blood Cells % (auto) 0.0, Anion Gap 9, Glomerular Filtration Rate > 60.0, Calcium Level 9.5, Total Bilirubin 0.6, Direct Bilirubin 0.1, Aspartate Amino Transf (AST/SGOT) 30, Alanine Aminotransferase (ALT/SGPT) 44, Alkaline Phosphatase 105, Total Protein 7.5, Albumin 4.0, Albumin/Globulin Ratio 1.14, Thyroid Stimulating Hormone (TSH) 0.062L, Salicylates Level < 1.7L, Urine Opiates Screen NEGATIVE, Urine Methadone Screen NEGATIVE, Acetaminophen Level < 2.0L, Urine Barbiturates Screen NEGATIVE, Urine Phencyclidine Screen NEGATIVE, Urine Amphetamines Screen POSITIVEH, Urine Benzodiazepines Screen NEGATIVE, Urine Cocaine Metabolite Screen NEGATIVE, Urine Cannabinoids Screen POSITIVEH, Ethyl Alcohol Level 0.003 CBC/BMP Laboratory Tests 01/01/20 17:55 Medications No Active Prescriptions or Reported Meds Allergies Coded Allergies: No Known Allergies (Unverified , 05/08/19) ALEXANDER DUNCAN DO Jan 02, 2020 10:08
[2020-01-02] MEDS ORDERED: FLUoxetine 20 MG CAP PO ONE (11:00)
--- NOTE | 2020-01-02 11:27 | CR.PDOC ---
General Date of Consultation: Jan 02, 2020 Referring Provider: ALEXANDER DUNCAN DO Consultation TIME OF SERVICE: 7:55 AM REASON FOR CONSULTATION/CHIEF COMPLAINT: medical-comanagement HISTORY OF PRESENT ILLNESS: This is a 29-year-old female who was admitted to [facility] last night for management of depression with SI. This morning she denies having chest pain, shortness of breath, fever, cough, shortness of breath or any other acute complaints. REVIEW OF SYSTEMS: 12 point review of systems negative except as listed in HPI PAST MEDICAL/ SURGICAL HISTORY: Depression. She denies having any medical problems or surgeries. She has had 2 children SOCIAL HISTORY: She smokes. She doesn't drink alcohol. She uses cannabis and last used yesterday. FAMILY HISTORY: Is having any family medical history ALLERGIES: Please see below. HOME MEDICATIONS: Please see below. PHYSICAL EXAMINATION: Vital Signs Date Time Temp Pulse Resp B/P (MAP) Pulse Ox O2 Delivery O2 Flow Rate FiO2 01/01/20 17:27 98.6 90 19 132/78 98 Room Air GEN: well-nourished / well developed/ NAD HEENT: NCAT /mucus membranes moist and pink CVS: RRR/NMRG LUNGS: lungs are clear to auscultation bilaterally on room air MSK/EXTREMITIES: range of motion intact in all 4 extremities / gait is normal NEURO: CN 2-12 are grossly intact / speech is not dysarthric PSYCH: alert and oriented to person place and time/ able to understand and fo llow all commands LABORATORY DATA: Nucleated Red Blood Cells % (auto) 0.0, Anion Gap 9, Glomerular Filtration Rate > 60.0, Calcium Level 9.5, Total Bilirubin 0.6, Direct Bilirubin 0.1, Aspartate Amino Transf (AST/SGOT) 30, Alanine Aminotransferase (ALT/SGPT) 44, Alkaline Phosphatase 105, Total Protein 7.5, Albumin 4.0, Albumin/Globulin Ratio 1.14, Thyroid Stimulating Hormone (TSH) 0.062L, Salicylates Level < 1.7L, Urine Opiates Screen NEGATIVE, Urine Methadone Screen NEGATIVE, Acetaminophen Level < 2.0L, Urine Barbiturates Screen NEGATIVE, Urine Phencyclidine Screen NEGATIVE, Urine Amphetamines Screen POSITIVEH, Urine Benzodiazepines Screen NEGATIVE, Urine Cocaine Metabolite Screen NEGATIVE, Urine Cannabinoids Screen POSITIVEH, Ethyl Alcohol Level 0.003 ASSESSMENT: This Huddleston is a 29-year-old with a history of depression. He was admitted to [facility] for management of suicidal ideation; we were consulted for medical comanagement. PLAN: 1. Depression with suicidal ideation - plan per primary 2. Tobacco / THC abuse - declined nicotine patch/ smoking cessation education 3. Low TSH - f/u repeat TFTs DVT Px not needed bc the patient is ambulatory. Thank you for consulting us, we will continue to follow the patient with you. Allergies Coded Allergies: No Known Allergies (Unverified , 05/08/19) Home Medications No Active Prescriptions or Reported Meds LASHAUN SR MD Jan 02, 2020 11:27
[2020-01-02 16:00] VITALS: BP 147/84
[2020-01-03 06:26] VITALS: BP 120/64
[2020-01-03 08:25] LABS: FREE T4 1.49 NG/DL (0.76-1.46); THYROID STIMULATING HORMONE 0.034 uIU/ML (0.358-3.740)
[2020-01-03] MEDS ORDERED: TRAZ-252 PO (08:47)
[2020-01-03] MEDS ORDERED: FLUO20CA22 PO (08:47)
--- NOTE | 2020-01-03 08:47 | MHDSPDOC ---
[facility] Discharge Summary Discharge Summary DATE OF ADMISSION: Jan 01, 2020 at 7:33 pm DATE OF DISCHARGE: Jan 03, 2020 DISCHARGE DIAGNOSES: Major depression, recurrent, moderate, w/o psychosis cannabis/amphetamine use d/o R/O borderline personality d/o REASON FOR ADMISSION: Patient is a 29 -year-old , female, with a psych history of depression and SI last admitted to [facility] for OD 10/08/17 who was bought to ED by PD on 9.41 due to writing suicide note that she did not bring with her to the hospital. In the ED pt admitted to writing the suicide note and stated "if I would do I would plan to OD." Per PD officer pt has 5 children present with her mother. Pt's boyfriend's daughter called the ED and ED and pt spoke with her. She informed ED that she hear from her father, the pt's boyfriend, that she was here due to attempting suicide, as the pt and her boyfriend of 11yrs, father of pt's 5 kids, broke-up yesterday. Pt's boyfriend lives near [place] and called CPS on the pt. Pt endorsed family issues regarding her boyfriend the father of her son's and recently smoking marijuana with a friend she and let stay with her and her boyfriend thought it had been laced by the friend with an unknown substance. Pt denied active thoughts of suicide in the ED but that she had a plan to take some pills. Pt stated she laid down to take a nap and "sleep it all off" but was woken by the PD. Pt seen and states she feels depressed and had written a note about "how I was done with everything" and "had a thought to OD." States she and her boyfriend broke-up a while and that it contributes to her low mood. States she feels she would benefit from an antidepressant medication as she is not on any currently but is unable to recall if any that she was on previously were beneficial. Asked pt about prozac and she states she believes it may have been helpful and is agreeable to starting it here. She appears depressed and flat. She currently denies SI/HI, hallucinations, delusions. Feels safe here. CONSULTANTS INVOLVED: none TREATMENT AND PROGRESS ON THE UNIT : Pt was admitted to [facility], seen for psychiatric assessment and started on prozac 20mg daily for mood and anxiety. She was provided trazodone 50mg qhs prn insomnia. Pt found her medications beneficial and tolerated them well. She attended groups daily during her stay. Her symptoms improved with treatment. On day of discharge she denied depression, anxiety, insomnia, SI/HI, hallucinations, delusions. She was discharged home with follow-up at [facility]. She felt safe for discharge. DISCHARGE ASSESSMENT: Pt seen and states that her mood is "good" and that she's looking forward to going home to her kids who are currently with their father who drove to [place] from [place] yesterday. She states he is supportive. She is euthymic and bright today. States she slept well last night. Feels she is tolerating her prozac and that it's beneficial. She is attending groups and finding them helpful. She denies depression, anxiety, insomnia, SI/HI, hallucinations, delusions. Pt feels safe to d/c home today. MENTAL STATUS EXAMINATION ON DISCHARGE: General Appearance: unkempt, disheveled, appears stated age, hospital scrubs/clothing Build: average Demeanor: cooperative Eye Contact: good Activity: average Behavior: cooperative Speech: clear, reg volume Mood: euthymic, full range Mood "good" Affect: euthymic, full range, congruent Thought Process: logical/linear, intact Thought Content (Delusions): none reported, denies SI, HI, AVH Thought Content (Other): none reported, appropriate Thought Content (Aggressive): none reported Perception (Hallucinations): none reported Perception (Other): none reported Cognition (Impairment of): none reported Cognition(Intelligence Est.): average Oriented: Awake, Alert, Oriented times three Insight: good Judgment: good Psychosis: Denies MEDICATIONS ON DISCHARGE: prozac 20mg daily trazodone 50mg qhs prn insomnia PLAN/FOLLOWUP ARRANGEMENTS: D/c home with follow-up at [facility]. The amount of time spent in the coordination of care for this patient was approximately 30 minutes. Vital Signs/I&Os Vital Signs Date Time Temp Pulse Resp B/P (MAP) Pulse Ox O2 Delivery O2 Flow Rate FiO2 01/03/20 06:26 99.0 57 18 120/64 (82) 01/02/20 08:42 Room Air 01/01/20 20:39 98 Laboratory Data Labs 24H Laboratory Tests 2 01/03/20 07:19: Thyroid Stimulating Hormone (TSH) 0.034L, Free Thyroxine 1.49H Medications No Active Prescriptions or Reported Meds Allergies Coded Allergies: No Known Allergies (Unverified , 05/08/19) ALEXANDER DUNCAN DO Jan 03, 2020 8:47 am
[2020-01-03] MEDS ORDERED: FLUoxetine 20 MG CAP PO SCH (09:00)
--- NOTE | 2020-01-03 10:37 | IPNPDOC ---
Text Note Date of Service The patient was seen on 01/03/20. NOTE Time of service 8:05 AM S The patient reports feeling well, denies having any cough, chest pain, runny nose or fever. She anticipates being discharged soon. O Vital Signs Date Time Temp Pulse Resp B/P (MAP) Pulse Ox O2 Delivery O2 Flow Rate FiO2 01/03/20 06:26 99.0 57 18 120/64 (82) 01/02/20 08:42 Room Air 01/01/20 20:39 98 GEN: well-nourished / well developed/ NAD CVS: RRR/NMRG LUNGS: lungs are clear to auscultation bilaterally on room air MSK/EXTREMITIES: gait is normal without assistive devices NEURO: CN 2-12 are grossly intact / speech is not dysarthric PSYCH: alert and oriented to person place and time/ able to understand and follow all commands A/P Ms. Huddleston is a 29-year-old with a history of depression. He was admitted to [facility] for management of suicidal ideation; we were consulted for medical comanagement. 1. Depression with suicidal ideation - plan per 2. Tobacco / THC abuse - declined nicotine patch/ smoking cessation education 3. Low TSH - she can follow up with her PCP for repeat TFTs in 4-6 weeks 4. Back Pain - c/w acetaminophen consider lidocane patches PRN DVT Px not needed bc the patient is ambulatory. Thank you for consulting us, we will sign off. LASHAUN SR MD Jan 03, 2020 10:37
== END 2020-01-03 11:24 | disposition home or self-care (01) | DRG 751 ==
LOC: M ED 17:17 → M ED INP 19:33 → M PSY 20:22
PROVIDERS: ADMIT Psychiatry & Neurology Addiction Medicine; ATTEND Psychiatry & Neurology Psychiatry
DX: F33.1 Major depressive disorder, recurrent, moderate (principal); F12.10 Cannabis abuse, uncomplicated; F15.10 Other stimulant abuse, uncomplicated; F60.3 Borderline personality disorder; F17.200 Nicotine dependence, unspecified, uncomplicated; E03.9 Hypothyroidism, unspecified; F41.9 Anxiety disorder, unspecified; Z91.5 Personal history of self-harm; Z63.5 Disruption of family by separation and divorce

== ENCOUNTER 2020-01-19 19:15 | Inpatient (IN) | payer OTHER ==
[~2020-01-19] VITALS: Ht 162.6 cm; Wt 82.6 kg
[~2020-01-19 19:15] MED LIST changes: -ATOM40CA PO; +ATOM40CA16 PO; +FLUO20CA22 PO
[2020-01-19 19:39] LABS: BASO # 0.1 10^3/uL (0.0-0.2); BASO % 0.5 % (0.0-1.0); EOS # 0.2 10^3/uL (0.0-0.5); EOS % 1.7 % (0.0-3.0); HEMATOCRIT 41.1 % (36.0-47.0); LYMPH # 3.3 10^3/uL (1.5-5.0); LYMPH % 32.8 % (24.0-44.0); MEAN CORPUSCULAR HEMOGLOBIN 30.8 pg (27.0-33.0); MEAN CORPUSCULAR HGB CONC 34.1 g/dl (32.0-36.5); MEAN CORPUSCULAR VOLUME 90.3 fl (80.0-96.0); MONO # 0.7 10^3/uL (0.0-0.8); MONO % 7.3 % (0.0-5.0); NEUTROPHILS # 5.8 10^3/uL (1.5-8.5); NEUTROPHILS % 57.5 % (36.0-66.0); PLATELET COUNT, AUTOMATED 433 10^3/uL (150-450); RED BLOOD COUNT 4.55 10^6/uL (4.00-5.40)
[2020-01-19 19:51] LABS: HCG, SERUM QUALITATIVE NEGATIVE (NEGATIVE)
[2020-01-19 20:08] LABS: ALBUMIN 4.1 GM/DL (3.2-5.2); ALT/SGPT 33 U/L (12-78); BILIRUBIN,DIRECT 0.1 MG/DL (0.0-0.2); BILIRUBIN,TOTAL 0.5 MG/DL (0.2-1.0); BLOOD UREA NITROGEN 10 MG/DL (7-18); CALCIUM LEVEL 9.4 MG/DL (8.5-10.1); CARBON DIOXIDE LEVEL 20 MEQ/L (21-32); CHLORIDE LEVEL 108 MEQ/L (98-107); CPK CREATINE PHOSPHOKINASE 127 U/L (26-192); CREATININE FOR GFR 0.66 MG/DL (0.55-1.30); ETHYL ALCOHOL (ETHANOL) 0.057 % (0.000-0.010); GLOMERULAR FILTRATION RATE > 60.0 (>60); GLUCOSE, FASTING 95 MG/DL (70-100); POTASSIUM SERUM 3.1 MEQ/L (3.5-5.1); SALICYLATE LEVEL 2.1 MG/DL (5.0-30.0); SODIUM LEVEL 139 MEQ/L (136-145); THYROID STIMULATING HORMONE 0.947 uIU/ML (0.358-3.740); TOTAL PROTEIN 7.7 GM/DL (6.4-8.2)
[2020-01-19 20:09] LABS: ACETAMINOPHEN LEVEL < 2.0 UG/ML (10.0-30.0)
[2020-01-19 20:10] LABS: AMPHETAMINES LEVEL URINE POSITIVE (NEGATIVE); BARBITURATES URINE NEGATIVE (NEGATIVE); BENZODIAZEPINES URINE NEGATIVE (NEGATIVE); CANNABINOIDS URINE POSITIVE (NEGATIVE); COCAINE METABOLITE URINE NEGATIVE (NEGATIVE); METHADONE URINE NEGATIVE (NEGATIVE); OPIATES URINE NEGATIVE (NEGATIVE); PHENCYCLIDINE URINE NEGATIVE (NEGATIVE)
[2020-01-19] MEDS ORDERED: NS 1,000 ML IV ONE (20:30)
[2020-01-19] MEDS ORDERED: KCL 10MEQ/100ML SWI (KRUN) 10 MEQ in IV 1 EA IV ONE (20:30)
[2020-01-19] MEDS ORDERED: TRAZ-186 PO (23:30)
[2020-01-19] MEDS ORDERED: PATIENT COMMENTS (23:30)
[2020-01-19] MEDS ORDERED: FLUO20TA28 PO (23:30)
[2020-01-20] VITALS (8 sets, daily range): BP systolic 117–134; BP diastolic 63–84
[2020-01-20] MEDS ORDERED: MOM 30ML SUSPENSION UDC PO PRN (01:00)
[2020-01-20] MEDS ORDERED: ACETAMINOPHEN TAB 650MG DOSE (2X325MG) PO PRN (01:00)
[2020-01-20] MEDS ORDERED: MAALOX 30 ML SUSP *UDC PO PRN (01:00)
[2020-01-20] MEDS ORDERED: THIAMINE 100 MG TAB PO SCH (01:05)
[2020-01-20] MEDS: MULTIVITAMINS/MINERALS THERAP 1 TAB PO SCH (08:20)
[2020-01-20] MEDS: LORazepam 2 MG TAB PO PRN (08:20)
[2020-01-20] MEDS: FOLIC ACID 1 MG TAB PO SCH (08:20)
[2020-01-20] MEDS: THIAMINE 100 MG TAB PO SCH ×2 (08:20→20:08)
--- NOTE | 2020-01-20 09:01 | MHHPEPDOC ---
[facility] History & Physical History and Physical DATE OF ADMISSION: Jan 20, 2020 at 01:00 New Patient Amanda Huddleston MRN: N/A Date of : N/A Date of Service: 01/20/2020 Chief Complaint "I want to ." History of Present Illness The patient, a 29-year-old woman who recently presented to our unit, presents again after overdosing on trazodone and Prozac while being severely intoxicated with alcohol, cannabis, and methamphetamine. She reports that after she had left only a few weeks ago she had relapsed and started using various drugs and had CPS remove her children. She reported this was a major stressor and that she began to use a variety of drugs and reports that she had overdosed with the intention to kill herself. When the patient was met with she is fairly uninterested in engaging in any meaningful discussion, she is obstinate and appears quite depressed. The patient reports that she still feels like she "wants to " but does not elaborate anything further. Psychosocial information is extracted from previous admission and updated as ann marie ropriate. Review Of Systems Unable to engage full and comprehensive review of systems due to patient's unwillingness to engage. Past Psychiatric History Last admitted in December 2019, has a history of overdose in the past, has had several admissions going back into August. No current psychiatric followup, and had been previously on Lamictal, Latuda, Strattera, prazosin, however, she was started on Prozac and trazodone when she last left. Allergies Please see below. Family Psychiatric History The patient denies/is unaware any history of mental health history including addictions and suicide. Social History Patient was born and raised by mother with several siblings, reportedly has good relationship with family. Had reportedly denied any history of trauma or abuse growing up. Currently lives in [place], previously with her children before CPS had removed them. She has a 9th grade education, is unemployed, supported by family and ex-boyfriend. No other legal difficulties other than CPS. She has a boyfriend for 11 years, is the father of her 5 children who currently lives near [place]. Substance Abuse History Has an extensive history of nicotine, amphetamines and cannabis use. Has been previously at [facility]. Medical History Has a history of cryosurgery, but no other significant medical history. Mental Status Examination General: Poor hygiene Speech: Spontaneous and fluid Thought processes: Linear and logical MSK: Smooth and coordinated gait, no signs of tremors or involuntary orofacial movements Thought content: Hopeless Abstract reasoning, and computation: Intact Description of associations: Intact Description of abnormal or psychotic thoughts: Admits to suicidal thoughts. Judgment: Impaired Insight: Impaired Orientation: Alert and orientated 3 Cognition: Grossly normal Recent and remote memory: Intact Attention span and concentration: Intact Fund of knowledge: Adequate Mood: "Bad" Affect: Dysthymic with constricted range. Diagnoses Unspecified depressive disorder. Rule out substance induced versus adjustment. Methamphetamine use disorder, moderate. Cannabis use disorder, moderate. Alcohol use disorder, unspecified. Tobacco use disorder, unspecified. Assessment and Plan Unspecified depressive disorder: We'll allow for washout of Prozac and trazodone, EKG need to be repeated with CMP. Methamphetamine/cannabis use: Recommend outpatient rehab. Alcohol use disorder: Continue CIIL protocol. Tobacco use disorder: Offer nicotine replacement. Disposition Patient will need to be further observed on our unit for extension for involuntary as she still has a great amount of lassitude about her attempt last evening. Problem List 1. Risk for suicide. 2. Substance use. Initial Treatment Plan 1. Patient was admitted on a 9.39 legal status. 2. Complete history was obtained. 3. With patients permission, family will be contacted and database will be expanded. 4. Patients medication regimen will be reviewed and changed accordingly. 5. Patient will be provided with protected environment. 6. Patient will be treated with individual, group, and milieu therapies. 7. Patient will receive supportive psych-education. 8. Discharge planning will commence immediately. 9. Outpatient follow-up treatment will be strongly recommended. 10. The initial treatment plan will focus initially on: Estimated Length Of Stay 3 days. Time Spent 70 minutes with greater than 50% of time spent on counseling/coordination of care. Monday Vital Signs Vital Signs Date Time Temp Pulse Resp B/P (MAP) Pulse Ox O2 Delivery O2 Flow Rate FiO2 01/20/20 08:14 99 117/77 01/20/20 06:27 97.6 16 98 Room Air Laboratory Data 24H Labs Laboratory Tests 2 01/19/20 19:27: Immature Granulocyte % (Auto) 0.2, Neutrophils (%) (Auto) 57.5, Lymphocytes (%) (Auto) 32.8, Monocytes (%) (Auto) 7.3H, Eosinophils (%) (Auto) 1.7, Basophils (%) (Auto) 0.5, Neutrophils # (Auto) 5.8, Lymphocytes # (Auto) 3.3, Monocytes # (Auto) 0.7, Eosinophils # (Auto) 0.2, Basophils # (Auto) 0.1, Nucleated Red Blood Cells % (auto) 0.0, Anion Gap 11, Glomerular Filtration Rate > 60.0, Calcium Level 9.4, Total Bilirubin 0.5, Direct Bilirubin 0.1, Aspartate Amino Transf (AST/SGOT) 22, Alanine Aminotransferase (ALT/SGPT) 33, Alkaline Phosphatase 99, Total Creatine Kinase 127, Total Protein 7.7, Albumin 4.1, Albumin/Globulin Ratio 1.14, Thyroid Stimulating Hormone (TSH) 0.947, Human Chorionic Gonadotropin, Qual NEGATIVE, Salicylates Level 2.1L, Urine Opiates Screen NEGATIVE, Urine Methadone Screen NEGATIVE, Acetaminophen Level < 2.0L, Urine Barbiturates Screen NEGATIVE, Urine Phencyclidine Screen NEGATIVE, Urine Amphetamines Screen POSITIVEH, Urine Benzodiazepines Screen NEGATIVE, Urine Coca ine Metabolite Screen NEGATIVE, Urine Cannabinoids Screen POSITIVEH, Ethyl Alcohol Level 0.057H 01/19/20 19:29: Bedside Glucose (Misc Panel) 96 CBC/BMP Laboratory Tests 01/19/20 19:27 FSBS Laboratory Tests Test 01/19/20 19:29 Range/Units Bedside Glucose (Misc Panel) 96 70-105 MG/DL Medications Scheduled Fluoxetine HCl (Fluoxetine HCl) 20 Mg Tablet, 20 MG PO DAILY, (Reported) Scheduled PRN Trazodone HCl (Trazodone HCl) 50 Mg Tablet, 50 MG PO QHS PRN for INSOMNIA, (Reported) Miscellaneous Medications [Patient Comments] , (Reported) PATIENT HAD DIFFICULTY REMAINING AWAKE WHEN QUESTIONED ABOUT HOME MEDICATIONS Allergies Coded Allergies: No Known Allergies (Unverified , 05/08/19) LITZY KRAUS DO Jan 20, 2020 09:01
[2020-01-20 12:40] LABS: ALBUMIN 3.4 GM/DL (3.2-5.2); ALT/SGPT 28 U/L (12-78); BILIRUBIN,TOTAL 0.3 MG/DL (0.2-1.0); BLOOD UREA NITROGEN 11 MG/DL (7-18); CALCIUM LEVEL 8.8 MG/DL (8.5-10.1); CARBON DIOXIDE LEVEL 22 MEQ/L (21-32); CHLORIDE LEVEL 111 MEQ/L (98-107); CREATININE FOR GFR 0.67 MG/DL (0.55-1.30); GLOMERULAR FILTRATION RATE > 60.0 (>60); GLUCOSE, FASTING 77 MG/DL (70-100); POTASSIUM SERUM 4.4 MEQ/L (3.5-5.1); SODIUM LEVEL 139 MEQ/L (136-145); TOTAL PROTEIN 6.5 GM/DL (6.4-8.2)
--- NOTE | 2020-01-20 14:59 | HPEPDOC ---
General Date of Admission Jan 20, 2020 at 01:00 Date of Service: Jan 20, 2020 Chief Complaint The patient is a 29-year-old female admitted with a reason for visit of Unspecified Depressive Disorder. Source: Patient Exam Limitations: No limitations Timing/Duration: Day(s) Severity: Moderate History of Present Illness Patient is 29 years old female w/o significant past medical history, who was admitted in the hospital with suicidal ideation. She denied any cardiovascular problem, breathing problem, GI problem or dysuria. He denies fever, chills, nausea, vomiting, shortness of breath, palpitations, diarrhea or dysuria Home Medications Scheduled Fluoxetine HCl (Fluoxetine HCl) 20 Mg Tablet, 20 MG PO DAILY, (Reported) Scheduled PRN Trazodone HCl (Trazodone HCl) 50 Mg Tablet, 50 MG PO QHS PRN for INSOMNIA, (Reported) Miscellaneous Medications [Patient Comments] , (Reported) PATIENT HAD DIFFICULTY REMAINING AWAKE WHEN QUESTIONED ABOUT HOME MEDICATIONS Allergies Coded Allergies: No Known Allergies (Unverified , 05/08/19) Past Medical History Medical History Depression, anxiety Family History Patient stated that she was adopted Social History * Smoker: current smoker Drugs: marijuana A-FIB/CHADSVASC A-FIB History Current/History of A-Fib/PAF?: No Review of Systems Constitutional: Denies: Chills, Fever Eyes: Denies: Pain, Vision change ENT: Denies: Head Aches Skin: Denies: Lesions Pulmonary: Denies: Dyspnea, Cough Cardiovascular: Denies: Chest Pain Gastrointestinal: Denies: Nausea, Vomiting Genitourinary: Denies: Dysuria, Frequency Hematologic: Denies: Bruising Endocrine: Denies: Polydipsia Musculoskeletal: Denies: Neck Pain Neurological: Denies: Weakness Psych: Reports: Depression Physical Examination General Exam: Positive: Alert, Cooperative Eye Exam: Positive: PERRLA ENT Exam: Positive: Atraumatic Neck Exam: Positive: Supple; Negative: JVD Chest Exam: Positive: Clear to auscultation Heart Exam: Positive: Rate Normal Telemetry: Positive: No significant arrhythmia Abdomen Exam: Positive: Normal bowel sounds Extremity Exam: Negative: Clubbing, Cyanosis Neuro Exam: Positive: Normal Gait, Strength at 5/5 X4 ext Psych Exam: Positive: Mental status NL Vital Signs Vital Signs Date Time Temp Pulse Resp B/P (MAP) Pulse Ox O2 Delivery O2 Flow Rate FiO2 4/13/20 12:38 89 117/67 01/20/20 10:00 98.0 12 99 Room Air Laboratory Data Labs 24H Laboratory Tests 2 01/19/20 19:27: Immature Granulocyte % (Auto) 0.2, Neutrophils (%) (Auto) 57.5, Lymphocytes (%) (Auto) 32.8, Monocytes (%) (Auto) 7.3H, Eosinophils (%) (Auto) 1.7, Basophils (%) (Auto) 0.5, Neutrophils # (Auto) 5.8, Lymphocytes # (Auto) 3.3, Monocytes # (Auto) 0.7, Eosinophils # (Auto) 0.2, Basophils # (Auto) 0.1, Nucleated Red Blood Cells % (auto) 0.0, Anion Gap 11, Glomerular Filtration Rate > 60.0, Calc ium Level 9.4, Total Bilirubin 0.5, Direct Bilirubin 0.1, Aspartate Amino Transf (AST/SGOT) 22, Alanine Aminotransferase (ALT/SGPT) 33, Alkaline Phosphatase 99, Total Creatine Kinase 127, Total Protein 7.7, Albumin 4.1, Albumin/Globulin Ratio 1.14, Thyroid Stimulating Hormone (TSH) 0.947, Human Chorionic Gonadotropin, Qual NEGATIVE, Salicylates Level 2.1L, Urine Opiates Screen NEGATIVE, Urine Methadone Screen NEGATIVE, Acetaminophen Level < 2.0L, Urine Barbiturates Screen NEGATIVE, Urine Phencyclidine Screen NEGATIVE, Urine Amphetamines Screen POSITIVEH, Urine Benzodiazepines Screen NEGATIVE, Urine Cocaine Metabolite Screen NEGATIVE, Urine Cannabinoids Screen POSITIVEH, Ethyl Alcohol Level 0.057H 01/19/20 19:29: Bedside Glucose (Misc Panel) 96 01/20/20 11:36: Anion Gap 6L, Glomerular Filtration Rate > 60.0, Calcium Level 8.8, Total Bilirubin 0.3, Aspartate Amino Transf (AST/SGOT) 21, Alanine Aminotransferase (ALT/SGPT) 28, Alkaline Phosphatase 85, Total Protein 6.5, Albumin 3.4, Albumin/Globulin Ratio 1.10 CBC/BMP Laboratory Tests 01/19/20 19:27 01/20/20 11:36 Assessment/Plan Patient is 29 years old female w/o significant past medical history, who was admitted in the hospital with suicidal ideation. She denied any cardiovascular problem, breathing problem, GI problem or dysuria. He denies fever, chills, nausea, vomiting, shortness of breath, palpitations, diarrhea or dysuria Problems (1) Depression Status: Acute Problem Text: Treatment of depression per psychiatric team Patient does not have any acute diseases besides of her psychiatric diseases Plan / VTE VTE Prophylaxis Ordered?: No VTE Exclusion Pharmacological: At Low Risk for VTE NAHEED JOHN DO Jan 20, 2020 14:59
[2020-01-21 06:56] VITALS: BP 129/60
[2020-01-21] MEDS: hydrOXYzine 50 MG TAB PO PRN ×2 (08:17→20:41)
[2020-01-21] MEDS: FOLIC ACID 1 MG TAB PO SCH (08:17)
[2020-01-21] MEDS: MULTIVITAMINS/MINERALS THERAP 1 TAB PO SCH (08:17)
[2020-01-21] MEDS: THIAMINE 100 MG TAB PO SCH ×2 (08:17→20:41)
[2020-01-21 08:23] VITALS: BP 131/61
[2020-01-21] MEDS: LORazepam 2 MG TAB PO PRN (08:35)
--- NOTE | 2020-01-21 09:02 | ECGEPIP ---
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
[2020-01-21] MEDS ORDERED: hydrOXYzine 25 MG TAB PO PRN (09:30)
[2020-01-21] MEDS ORDERED: cloNIDine 0.05MG PER 1/2 TABLET PO PRN (10:45)
[2020-01-21] MEDS ORDERED: DICYCLOMINE 10 MG CAP PO PRN (11:00)
--- NOTE | 2020-01-21 11:03 | MHIPNPDOC ---
[facility] Progress Note Progress Note Inpatient Progress Note Amanda Huddleston MRN: N/A Date of : N/A Date of Service: 01/21/2020 History of Present Illness The patient, a 29-year-old woman who recently presented to our unit, presents again after overdosing on trazodone and Prozac while being severely intoxicated with alcohol, cannabis, and methamphetamine. She reports that after she had left only a few weeks ago she had relapsed and started using various drugs and had CPS remove her children. She reported this was a major stressor and that she began to use a variety of drugs and reports that she had overdosed with the intention to kill herself. When the patient was met with she is fairly uninterested in engaging in any meaningful discussion, she is obstinate and appears quite depressed. The patient reports that she still feels like she "wants to " but does not elaborate anything further. Psychosocial information is extracted from previous admission and updated as appropriate. Interval History Patient is met with today, she is doing much better and reports that she is feeling much improved as her withdrawals resolved. She reports she is feeling more euthymic and less fatigued and less anxious. She reports she is more motivated to get her children back and reports that she is much more interested in activities and is planning for her discharge. She reports her suicidality has resolved. Review Of Systems General: Denies fever or appetite changes Cardiovascular: Denies Chest pain or palpations GI: Denies Nausea, vomiting, or bowel changes Respiratory: Denies shortness of breath or cough Neuro: Denies dizziness, tremors Derm: Denies any rashes or pruritus : Denies any dysuria or urinary problems MSK: Denies any muscle tightness or stiffness HEENT: Denies any vision changes or headaches Psychotherapy None on this visit. Vital Signs Reviewed. Mental Status Examination General: Well dressed with good hygiene Speech: Spontaneous and fluid Thought processes: Linear and logical MSK: Smooth and coordinated gait, no signs of tremors or involuntary orofacial movements Thought content: Future orientated Abstract reasoning, and computation: Intact Description of associations: Intact Description of abnormal or psychotic thoughts: Denies any suicidal or homicidal ideation. Denies any auditory or visual hallucinations. Does not appear to be responding to internal stimuli. Does not appear to be endorsing any bizarre or paranoid ideation. Judgment: fair Insight: fair Orientation: Alert and orientated 3 Cognition: Grossly normal Recent and remote memory: Intact Attention span and concentration: Intact Fund of knowledge: Adequate Mood: "okay" Affect: Euthymic with a full range Diagnoses Unspecified depressive disorder. Rule out substance induced versus adjustment. Methamphetamine use disorder, moderate. Cannabis use disorder, moderate. Alcohol use disorder, unspecified. Tobacco use disorder, unspecified. Assessment and Plan Unspecified depressive disorder: Hold off on Prozac as patient will likely have it's still in her serum for the next week. EKG normal. Methamphetamine/cannabis use: Recommend outpatient rehab. Alcohol use disorder: Continue CIME protocol. Tobacco use disorder: Offer nicotine replacement. Disposition Convert to voluntary today, likely discharge early this week as she improves. Time Spent 15 minutes. Monday Vital Signs Vital Signs Date Time Temp Pulse Resp B/P (MAP) Pulse Ox O2 Delivery O2 Flow Rate FiO2 01/21/20 08:23 70 131/61 01/21/20 06:56 98.5 12 98 Room Air Laboratory Data 24H Labs Laboratory Tests 2 01/20/20 11:36: Anion Gap 6L, Glomerular Filtration Rate > 60.0, Calcium Level 8.8, Total Bilirubin 0.3, Aspartate Amino Transf (AST/SGOT) 21, Alanine Aminotransferase (ALT/SGPT) 28, Alkaline Phosphatase 85, Total Protein 6.5, Albumin 3.4, Albumin/Globulin Ratio 1.10 CBC/BMP Laboratory Tests 01/20/20 11:36 Current Medications Current Medications Medications (Trade) Dose Ordered Sig/Kevin Route PRN Reason Start Time Stop Time Status Last Admin Dose Admin Acetaminophen (Tylenol Tab) 650 mg Q6HP PRN PO HEADACHE or DISCOMFORT 01/20/20 01:00 01/21/20 08:36 Al Hydrox/Mg Hydrox/Simethicone (Mylanta) 30 ml Q4HP PRN PO HEARTBURN/INDIGESTION 01/20/20 01:00 Clonidine HCl (Catapres) 0.05 mg Q6HP PRN PO withdrawl 01/21/20 10:45 Dicyclomine HCl (Bentyl) 10 mg TIDP PRN PO CRAMPS 01/21/20 11:00 Folic Acid (Folic Acid) 1 mg DAILY PO 01/20/20 09:00 01/21/20 08:17 Home Med (Med Rec Complete!) ASDIRECTED XX 01/19/20 23:30 01/19/20 23:32 DC Hydroxyzine HCl (Atarax) 25 mg Q6HP PRN PO ANXIETY 01/21/20 09:30 Hydroxyzine HCl (Atarax) 50 mg QHSP PRN PO INSOMNIA 01/20/20 01:00 01/21/20 08:17 Lorazepam (Ativan) 2 mg ASDIRECTED PRN PO SEE PROTOCOL 01/20/20 01:00 01/21/20 08:35 Magnesium Hydroxide (Milk Of Magnesia) 30 ml DAILYPRN PRN PO CONSTIPATION 01/20/20 01:00 Multivitamins (Theragram-M) 1 tab DAILY PO 01/20/20 09:00 01/21/20 08:17 Thiamine HCl (Thiamine HCl) 100 mg BID PO 01/20/20 01:05 01/20/20 01:58 DC Thiamine HCl (Thiamine HCl) 100 mg BID PO 01/20/20 09:00 01/22/20 21:01 01/21/20 08:17 Allergies Coded Allergies: No Known Allergies (Unverified , 05/08/19) LITZY KRAUS DO Jan 21, 2020 11:03
[2020-01-21] MEDS ORDERED: PILL CUTTER 1 EACH XX PRN (11:15)
[2020-01-21] MEDS ORDERED: cloNIDine 0.1 MG TAB PO PRN (11:15)
[2020-01-21 15:12] VITALS: BP 139/65
[2020-01-21 18:56] VITALS: BP 131/63
[2020-01-21 18:58] VITALS: BP 134/79
[2020-01-22 06:20] VITALS: BP 136/68
[2020-01-22] MEDS: THIAMINE 100 MG TAB PO SCH (08:22)
--- NOTE | 2020-01-22 09:13 | MHDSPDOC ---
[facility] Discharge Summary Discharge Summary DATE OF ADMISSION: Jan 20, 2020 at 01:00 DATE OF DISCHARGE: 01/23/20 Discharge Amanda Huddleston MRN: [id number] Date of : N/A Date of Service: 01/22/2020 Diagnoses Unspecified depressive disorder. Rule out substance induced versus adjustment. Methamphetamine use disorder, moderate. Cannabis use disorder, moderate. Alcohol use disorder, unspecified. Tobacco use disorder, unspecified. History of Present Illness The patient, a 29-year-old woman who recently presented to our unit, presents again after overdosing on trazodone and Prozac while being severely intoxicated with alcohol, cannabis, and methamphetamine. She reports that after she had left only a few weeks ago she had relapsed and started using various drugs and had CPS remove her children. She reported this was a major stressor and that she began to use a variety of drugs and reports that she had overdosed with the intention to kill herself. When the patient was met with she is fairly uninterested in engaging in any meaningful discussion, she is obstinate and appears quite depressed. The patient reports that she still feels like she "wants to " but does not elaborate anything further. Psychosocial information is extracted from previous admission and updated as appropriate. Consultants Involved Hospitalist/PCP screening Treatment and Progress On The Unit The patient was admitted to the inpatient mental health unit. She was not restarted on Prozac and trazodone as she had overdosed mildly on them requiring no medical treatment. She was observed and subsequently treated for her withdraw where it became quite clear that her depression was substance-induced. She was observed for 48 hours, where she did well with no difficulty. She did well and demonstrate improved insight and was able to cooperate better with treatment, denying suicidality throughout. Discharge Assessment 29-year-old woman with a history of severe substance use and reported depression comes in after a very mild overdose that happens in the context of severe intoxication with alcohol and methamphetamine. The patient at the time of discharge did not meet criteria for involuntary admission/extension due to having a normal mental status exam, fair insight into the situation, They are engaged in the discharge process, as well as being friendly and amenable in behavioral control and havent been engaging in any observed concerning behavior or ideation recently. They decline voluntary extension/admission at this time and must be discharged in good edwina, as Im unable to make a case for holding the patient against their will. They may have historical risk factors of admissions and other interactions with psychiatry however, those are not modifiable from a clinical perspective. The patient will need to be discharged in good edwina. Mental Status Examination General: Well dressed with good hygiene Speech: Spontaneous and fluid Thought processes: Linear and logical MSK: Smooth and coordinated gait, no signs of tremors or involuntary orofacial movements Thought content: Future orientated Abstract reasoning, and computation: Intact Description of associations: Intact Description of abnormal or psychotic thoughts: Denies any suicidal or homicidal ideation. Denies any auditory or visual hallucinations. Does not appear to be responding to internal stimuli. Does not appear to be endorsing any bizarre or paranoid ideation. Judgment: fair Insight: fair Orientation: Alert and orientated 3 Cognition: Grossly normal Recent and remote memory: Intact Attention span and concentration: Intact Fund of knowledge: Adequate Mood: "okay" Affect: Euthymic with a full range Follow Up The social work team worked during the predischarge meeting in order to evaluate for further issues of lethality address them fully before discharge. They worked on safety planning with the patient's family members in order to ensure that the patient will have a safe and effective discharge. Time Spent The amount of time spent in the coordination of care for this patient was approximately 45 minutes. Monday Vital Signs/I&Os Vital Signs Date Time Temp Pulse Resp B/P (MAP) Pulse Ox O2 Delivery O2 Flow Rate FiO2 01/22/20 06:20 97.2 58 12 136/68 (90) 98 Room Air Medications Scheduled Disulfiram (Disulfiram) 250 Mg Tablet, 1 TAB PO DAILY for alcohol for 30 Days, #30 Scheduled PRN Clonidine Hcl (Clonidine HCl) 0.1 Mg Tablet, 0.05 MG PO Q6HP PRN for ANXIETY/AGITATION for 7 Days, #7 Hydroxyzine HCl (Hydroxyzine HCl) 50 Mg Tablet, 50 MG PO QHSP PRN for INSOMNIA for 7 Days, #7 Allergies Coded Allergies: No Known Allergies (Unverified , 05/08/19) LITZY KRAUS DO Jan 22, 2020 09:13
[2020-01-22] MEDS ORDERED: CLONI1TA PO (10:33)
[2020-01-22] MEDS ORDERED: DISU250T PO (10:33)
[2020-01-22] MEDS ORDERED: HYDR50TA70 PO (10:34)
== END 2020-01-22 14:20 | disposition home or self-care (01) | DRG 751 ==
LOC: M ED 19:15 → M ED INP 01-20 01:00 → M PSY 01-20 01:35
PROVIDERS: ADMIT Psychiatry & Neurology Addiction Medicine; ATTEND Psychiatry & Neurology Addiction Medicine
DX: F29 Unspecified psychosis not due to a substance or known physiological condition (principal); R45.851 Suicidal ideations; F10.10 Alcohol abuse, uncomplicated; F17.200 Nicotine dependence, unspecified, uncomplicated; F15.90 Other stimulant use, unspecified, uncomplicated; F19.94 Other psychoactive substance use, unspecified with psychoactive substance-induced mood disorder; F43.20 Adjustment disorder, unspecified; Z79.899 Other long term (current) drug therapy

== ENCOUNTER 2020-05-10 11:27 | Emergency (ER) | payer OTHER ==
[~2020-05-10 11:27] MED LIST changes: +CLONI1TA PO; +DISU250T PO; +HYDR50TA70 PO; -MAPA325T2 PO; +MAPA325T8 PO; +PATIENT COMMENTS; +TRAZ-186 PO
[2020-06-14 19:27] LABS: HCG, SERUM QUALITATIVE NEGATIVE (NEGATIVE)
== END 2020-05-10 13:12 | disposition home or self-care (01) ==
LOC: M ED 11:27
DX: S30.0XXA Contusion of lower back and pelvis, initial encounter (principal); Y92.9 Unspecified place or not applicable; Y93.55 Activity, bike riding; Y99.9 Unspecified external cause status; F17.200 Nicotine dependence, unspecified, uncomplicated; Z79.899 Other long term (current) drug therapy

== ENCOUNTER 2020-08-20 16:55 | Emergency (ER) | payer OTHER ==
[~2020-08-20] VITALS: Ht 162.6 cm; Wt 71.3 kg
[2020-08-20 16:56] VITALS: BP 131/80
== END 2020-08-20 17:30 | disposition left against medical advice (07) ==
LOC: M ED 16:55
DX: Z53.21 Procedure and treatment not carried out due to patient leaving prior to being seen by health care provider (principal)

== ENCOUNTER 2022-07-08 23:15 | Inpatient (IN) | payer OTHER ==
[~2022-07-08] VITALS: Ht 165.1 cm; Wt 75.0 kg
[~2022-07-08 23:15] MED LIST changes: +DISU1TAB6 PO; -DISU250T PO; -LATU40TA PO; +LATU40TA2 PO
[2022-07-08] MEDS ORDERED: PRENTAB9 PO (23:24)
[2022-07-09] MEDS ORDERED: ACETAMINOPHEN 325 MG TAB PO ONE (06:00)
[2022-07-09 15:33] LABS: AMPHETAMINES LEVEL URINE NEGATIVE (NEGATIVE); BARBITURATES URINE NEGATIVE (NEGATIVE); BENZODIAZEPINES URINE NEGATIVE (NEGATIVE); CANNABINOIDS URINE POSITIVE (NEGATIVE); COCAINE METABOLITE URINE NEGATIVE (NEGATIVE); METHADONE URINE NEGATIVE (NEGATIVE); OPIATES URINE NEGATIVE (NEGATIVE); PHENCYCLIDINE URINE NEGATIVE (NEGATIVE)
[2022-07-09 16:08] LABS: HEMATOCRIT 29.9 % (36.0-47.0); HEMOGLOBIN 9.8 g/dl (12.0-15.5); MEAN CORPUSCULAR HEMOGLOBIN 31.3 pg (27.0-33.0); MEAN CORPUSCULAR HGB CONC 32.8 g/dl (32.0-36.5); MEAN CORPUSCULAR VOLUME 95.5 fl (80.0-96.0); PLATELET COUNT, AUTOMATED 486 10^3/uL (150-450); RED BLOOD COUNT 3.13 10^6/uL (4.00-5.40); WHITE BLOOD COUNT 11.3 10^3/uL (4.0-10.0)
[2022-07-09 16:55] LABS: ACETAMINOPHEN LEVEL < 2.0 UG/ML (10.0-30.0); ALBUMIN 2.4 GM/DL (3.2-5.2); ALT/SGPT 14 U/L (12-78); BILIRUBIN,DIRECT < 0.1 MG/DL (0.0-0.2); BILIRUBIN,TOTAL 0.2 MG/DL (0.2-1.0); BLOOD UREA NITROGEN 7 MG/DL (7-18); CALCIUM LEVEL 8.6 MG/DL (8.5-10.1); CARBON DIOXIDE LEVEL 24 MEQ/L (21-32); CHLORIDE LEVEL 107 MEQ/L (98-107); ETHYL ALCOHOL (ETHANOL) < 0.003 % (0.000-0.010); GLOMERULAR FILTRATION RATE > 60.0 (>60); GLUCOSE, FASTING 93 MG/DL (70-100); POTASSIUM SERUM 3.8 MEQ/L (3.5-5.1); SALICYLATE LEVEL < 1.7 MG/DL (5.0-30.0); SODIUM LEVEL 137 MEQ/L (136-145); TOTAL PROTEIN 5.7 GM/DL (6.4-8.2)
[2022-07-09 20:29] LABS: RSV AMPLIFICATION NEGATIVE (NEGATIVE)
[2022-07-09] MEDS ORDERED: HOME MED LIST COMPLETE! XX SCH (21:30)
[2022-07-10] MEDS: PRENATAL VITAMINS CHEWABLE TABLET PO SCH (09:00)
[2022-07-11] MEDS: PRENATAL VITAMINS CHEWABLE TABLET PO SCH (10:55)
[2022-07-11] MEDS ORDERED: MAALOX 30 ML SUSP *UDC PO PRN (14:15)
[2022-07-11] MEDS ORDERED: MOM 30ML SUSPENSION UDC PO PRN (14:15)
[2022-07-11 17:00] VITALS: BP 144/63
[2022-07-11] MEDS: IBUPROFEN 400MG TAB PO PRN (17:38)
[2022-07-12 06:40] VITALS: BP 119/55
[2022-07-12] MEDS: NICOTINE 21MG/24HR 1 EA TRANSDERMAL TD SCH (08:51)
[2022-07-12] MEDS: PRENATAL VITAMINS CHEWABLE TABLET PO SCH (09:48)
[2022-07-12 10:14] LABS: HCG, SERUM QUALITATIVE POSITIVE (NEGATIVE)
[2022-07-12 18:44] VITALS: BP 146/67
[2022-07-13 06:35] LABS: BASO # 0.1 10^3/uL (0.0-0.2); BASO % 0.4 % (0.0-1.0); EOS # 0.2 10^3/uL (0.0-0.5); EOS % 1.5 % (0.0-3.0); HEMATOCRIT 32.4 % (36.0-47.0); HEMOGLOBIN 10.6 g/dl (12.0-15.5); LYMPH # 2.7 10^3/uL (1.5-5.0); MEAN CORPUSCULAR HEMOGLOBIN 31.2 pg (27.0-33.0); MEAN CORPUSCULAR HGB CONC 32.7 g/dl (32.0-36.5); MEAN CORPUSCULAR VOLUME 95.3 fl (80.0-96.0); MONO % 7.1 % (2.0-8.0); NEUTROPHILS # 9.4 10^3/uL (1.5-8.5); NEUTROPHILS % 69.7 % (36.0-66.0); PLATELET COUNT, AUTOMATED 465 10^3/uL (150-450); WHITE BLOOD COUNT 13.5 10^3/uL (4.0-10.0)
[2022-07-13 06:49] VITALS: BP 120/68
[2022-07-13] MEDS: NICOTINE 21MG/24HR 1 EA TRANSDERMAL TD SCH (09:42)
[2022-07-13] MEDS: IBUPROFEN 400MG TAB PO PRN (09:42)
[2022-07-13] MEDS: PRENATAL VITAMINS CHEWABLE TABLET PO SCH (11:01)
[2022-07-13] MEDS: LURASIDONE 20 MG TAB (LATUDA) PO SCH (11:01)
[2022-07-13 18:25] VITALS: BP 110/56
[2022-07-13 22:59] LABS: HEPATITIS C VIRUS ABY INDEX < 0.0 INDEX (<0.8); HIV 1&2 SCREEN CENTAUR NEGATIVE (NEGATIVE)
[2022-07-14] MEDS ORDERED: diphenhydrAMINE 50MG CAP PO ONE (01:00)
[2022-07-14 06:46] VITALS: BP 120/56
[2022-07-14] MEDS: LURASIDONE 20 MG TAB (LATUDA) PO SCH (10:14)
[2022-07-14] MEDS: PRENATAL VITAMINS CHEWABLE TABLET PO SCH (10:14)
[2022-07-14] MEDS: NICOTINE 21MG/24HR 1 EA TRANSDERMAL TD SCH (10:14)
[2022-07-14 18:06] VITALS: BP 124/58
[2022-07-15 06:46] VITALS: BP 149/75
[2022-07-15] MEDS: PRENATAL VITAMINS CHEWABLE TABLET PO SCH (08:52)
[2022-07-15] MEDS: LURASIDONE 20 MG TAB (LATUDA) PO SCH (08:52)
[2022-07-15] MEDS: NICOTINE 21MG/24HR 1 EA TRANSDERMAL TD SCH (08:52)
[2022-07-15] MEDS ORDERED: PRENCHW PO (10:24)
[2022-07-15] MEDS ORDERED: LATU20TA PO (10:24)
== END 2022-07-15 12:10 | disposition home or self-care (01) | DRG 566 ==
LOC: EDBD 23:15 → M ED 23:15 → M ED INP 07-11 14:12 → M PSY 07-11 16:44
PROVIDERS: ADMIT Psychiatry & Neurology Psychiatry; ATTEND Psychiatry & Neurology Psychiatry
DX: O99.343 Other mental disorders complicating pregnancy, third trimester (principal); R45.851 Suicidal ideations; O99.322 Drug use complicating pregnancy, second trimester; F29 Unspecified psychosis not due to a substance or known physiological condition; Z3A.29 29 weeks gestation of pregnancy; F31.9 Bipolar disorder, unspecified; F12.90 Cannabis use, unspecified, uncomplicated; F10.10 Alcohol abuse, uncomplicated; F17.210 Nicotine dependence, cigarettes, uncomplicated; Z91.410 Personal history of adult physical and sexual abuse; O99.312 Alcohol use complicating pregnancy, second trimester

== ENCOUNTER 2022-09-24 10:35 | Inpatient (IN) | payer OTHER ==
[2022-09-24] VITALS (12 sets, daily range): BP systolic 131–154; BP diastolic 68–105
[~2022-09-24] VITALS: Ht 160 cm; Wt 79.5 kg
[~2022-09-24 10:35] MED LIST changes: +LATU20TA PO; +PRENCHW PO
[2022-09-24] MEDS ORDERED: PENICILLIN G POTASSIUM 5 MU IV 5 MU in D5W MINI-BAG PLUS 100 ML IV STA (10:46)
[2022-09-24] MEDS ORDERED: OXYTOCIN DRIP 30 UNITS in IV 1 EA IV PRN (10:50)
[2022-09-24] MEDS ORDERED: LIDOCAINE 1% MDV 20ML VIAL INFIL PRN (10:50)
[2022-09-24] MEDS ORDERED: HOME MED LIST COMPLETE! XX SCH (10:50)
[2022-09-24 11:20] LABS: HEMATOCRIT 32.4 % (36.0-47.0); HEMOGLOBIN 10.7 g/dl (12.0-15.5); MEAN CORPUSCULAR HEMOGLOBIN 28.8 pg (27.0-33.0); MEAN CORPUSCULAR VOLUME 87.1 fl (80.0-96.0); PLATELET COUNT, AUTOMATED 563 10^3/uL (150-450); RED BLOOD COUNT 3.72 10^6/uL (4.00-5.40); WHITE BLOOD COUNT 13.2 10^3/uL (4.0-10.0)
[2022-09-24] MEDS ORDERED: NALOXONE INJ 0.4MG/1ML VIAL IV PRN (11:40)
[2022-09-24] MEDS ORDERED: EPIDURAL/PCA KEYS XX PRN (11:40)
[2022-09-24] MEDS ORDERED: ePHEDrine SULFATE 25 MG/5 ML(5MG/ML) SYRINGE IVP PRN (11:40)
[2022-09-24] MEDS ORDERED: diphenhydrAMINE 50MG/ML VIAL IV PRN (11:40)
[2022-09-24] MEDS: FENTANYL/ROPIVACAINE/NACL BAG 100 ML EPIDURAL SCH ×2 (11:40→21:40)
[2022-09-24] MEDS ORDERED: ONDANSETRON 4MG 2ML VIAL IV PRN (11:40)
[2022-09-24] MEDS ORDERED: LR 500 ML IV PRN (11:40)
[2022-09-24 11:58] LABS: HIV 1&2 SCREEN CENTAUR NEGATIVE (NEGATIVE)
[2022-09-24] MEDS ORDERED: DOCUSATE SODIUM 100MG CAPSULE PO PRN (12:20)
[2022-09-24] MEDS ORDERED: ACETAMINOPHEN TAB 650MG DOSE (2X325MG) PO PRN (12:20)
[2022-09-24] MEDS ORDERED: METHYLERGONOVINE MALEATE 0.2 MG TAB PO PRN (12:20)
[2022-09-24] MEDS ORDERED: IBUPROFEN 600MG TAB PO PRN (12:20)
[2022-09-24] MEDS ORDERED: DIBUCAINE 1% OINTMENT 30GM TOP PRN (12:20)
[2022-09-24] MEDS ORDERED: IBUPROFEN 800 MG TAB PO PRN (12:20)
[2022-09-24] MEDS ORDERED: RHOGAM 300 MCG (1500 IU) INJ (J2790) IM SCH (12:20)
[2022-09-24] MEDS: PRENATAL VITAMINS CHEWABLE TABLET PO SCH (13:06)
[2022-09-24] MEDS: ACETAMINOPHEN 500 MG TAB PO PRN ×2 (13:06→20:04)
[2022-09-24 14:22] LABS: BARBITURATES URINE REFLEX NEGATIVE (NEGATIVE); BENZODIAZEPINES URINE REFLEX NEGATIVE (NEGATIVE); COCAINE METABOLITE URINE REFLE NEGATIVE (NEGATIVE); METHADONE URINE REFLEX NEGATIVE (NEGATIVE); OPIATES URINE REFLEX NEGATIVE (NEGATIVE); PHENCYCLIDINE URINE REFLEX NEGATIVE (NEGATIVE)
[2022-09-24 14:24] LABS: AMPHETAMINES URINE REFLEX PENDING CONFIRMATION (NEGATIVE); CANNABINOIDS URINE REFLEX PENDING CONFIRMATION (NEGATIVE)
[2022-09-24] MEDS ORDERED: PEN G POT 3,000,000 UNIT/50 ML 3,000,000 UNIT in IV 1 EA IV SCH (15:00)
[2022-09-25 05:40] VITALS: BP 122/62
[2022-09-25] MEDS: PRENATAL VITAMINS CHEWABLE TABLET PO SCH (09:12)
[2022-09-25] MEDS ORDERED: ACET-683 PO (09:42)
[2022-09-26] MEDS ORDERED: MEASLES,MUMPS,RUBELLA VACCINE INJ (MMR-II) (90707) SC.IMMUN ONE (09:00)
== END 2022-09-25 13:00 | disposition home or self-care (01) | DRG 560 ==
LOC: M LDO 10:35 → M LDI 10:46 → M OBS 14:11
PROVIDERS: ADMIT Specialist; ATTEND Specialist
PROC: 10E0XZZ Delivery of Products of Conception, External Approach (ICD-10-PCS; principal; 2022-09-24)
DX: O77.0 Labor and delivery complicated by meconium in amniotic fluid (principal); O09.31 Supervision of pregnancy with insufficient antenatal care, first trimester; Z37.0 Single live birth; Z3A.39 39 weeks gestation of pregnancy; O09.32 Supervision of pregnancy with insufficient antenatal care, second trimester; O09.33 Supervision of pregnancy with insufficient antenatal care, third trimester

== ENCOUNTER 2022-10-07 15:31 | Inpatient (IN) | payer OTHER ==
[~2022-10-07] VITALS: Ht 170.2 cm; Wt 73.3 kg
[~2022-10-07 15:31] MED LIST changes: +ACET-683 PO
[2022-10-07 17:01] LABS: HEMATOCRIT 39.6 % (36.0-47.0); HEMOGLOBIN 12.3 g/dl (12.0-15.5); MEAN CORPUSCULAR HEMOGLOBIN 28.6 pg (27.0-33.0); MEAN CORPUSCULAR HGB CONC 31.1 g/dl (32.0-36.5); MEAN CORPUSCULAR VOLUME 92.1 fl (80.0-96.0); PLATELET COUNT, AUTOMATED 563 10^3/uL (150-450); WHITE BLOOD COUNT 9.5 10^3/uL (4.0-10.0)
[2022-10-07 17:15] LABS: ETHYL ALCOHOL (ETHANOL) 0.003 % (0.000-0.010)
[2022-10-07 17:17] LABS: ACETAMINOPHEN LEVEL < 2.0 UG/ML (10.0-20.0); ALKALINE PHOSPHATASE 135 U/L (46-116); ALT/SGPT < 9 U/L (7.0-40); AST/SGOT 17 U/L (<34); BILIRUBIN,DIRECT < 0.1 MG/DL (<0.4); BILIRUBIN,TOTAL 0.2 MG/DL (0.3-1.2); BLOOD UREA NITROGEN 11 MG/DL (9-23); CALCIUM LEVEL 9.4 MG/DL (8.5-10.1); CARBON DIOXIDE LEVEL 24 MMOL/L (20-31); CHLORIDE LEVEL 104 MMOL/L (98-107); CREATININE FOR GFR 0.59 MG/DL (0.55-1.30); GLOMERULAR FILTRATION RATE > 60.0 (>60); GLUCOSE, FASTING 100 MG/DL (60-100); POTASSIUM SERUM 3.9 MMOL/L (3.5-5.1); SALICYLATE LEVEL < 3.0 MG/DL (<30); SODIUM LEVEL 139 MMOL/L (136-145); TOTAL PROTEIN 6.5 G/DL (5.7-8.2)
[2022-10-07 17:19] LABS: THYROID STIMULATING HORMONE 0.394 uIU/ML (0.55-4.78)
[2022-10-07 18:42] LABS: AMPHETAMINES LEVEL URINE NEGATIVE (NEGATIVE); BARBITURATES URINE NEGATIVE (NEGATIVE); BENZODIAZEPINES URINE NEGATIVE (NEGATIVE); COCAINE METABOLITE URINE NEGATIVE (NEGATIVE); METHADONE URINE NEGATIVE (NEGATIVE); OPIATES URINE NEGATIVE (NEGATIVE); PHENCYCLIDINE URINE NEGATIVE (NEGATIVE)
[2022-10-07 18:45] LABS: CANNABINOIDS URINE POSITIVE (NEGATIVE)
[2022-10-07] MEDS ORDERED: MOM 30ML SUSPENSION UDC PO PRN (19:10)
[2022-10-07] MEDS ORDERED: MAALOX 30 ML SUSP *UDC PO PRN (19:10)
[2022-10-07] MEDS ORDERED: ACETAMINOPHEN TAB 650MG DOSE (2X325MG) PO PRN (19:10)
[2022-10-07 19:50] LABS: RSV AMPLIFICATION NEGATIVE (NEGATIVE)
[2022-10-07] MEDS ORDERED: HOME MED LIST COMPLETE! XX SCH (20:00)
[2022-10-07 23:08] VITALS: BP 131/60
[2022-10-08 06:32] VITALS: BP 125/73
[2022-10-08] MEDS ORDERED: INFLUENZA QUADRIVALENT PF VACCINE 0.5ML SYRINGE IM.IMMUN ONE (09:00)
[2022-10-08] MEDS: LURASIDONE 20 MG TAB (LATUDA) PO SCH (09:10)
[2022-10-08] MEDS: FLUoxetine 20MG CAP PO SCH (09:11)
[2022-10-08] MEDS: NICOTINE 14 MG/24 HR TRANSDERMAL TD SCH (09:12)
[2022-10-08 12:40] LABS: THYROID STIMULATING HORMONE 0.856 uIU/ML (0.55-4.78)
[2022-10-08 12:41] LABS: FREE T4 1.07 NG/DL (0.89-1.76)
[2022-10-08 17:46] VITALS: BP 137/67
[2022-10-08] MEDS: traZODone 50 MG TAB PO PRN (20:54)
[2022-10-08] MEDS: hydrOXYzine 50 MG TAB PO PRN (20:54)
[2022-10-09 06:49] VITALS: BP 114/74
[2022-10-09 07:10] LABS: CHOLESTEROL RISK RATIO 3.91 (<5); HDL CHOLESTEROL 45.7 MG/DL (>40); LDL CHOLESTEROL 91.5 MG/DL (<100)
[2022-10-09] MEDS ORDERED: ONDANSETRON 4MG TAB PO PRN (08:10)
[2022-10-09] MEDS: hydrOXYzine 50 MG TAB PO PRN (09:31)
[2022-10-09] MEDS: FLUoxetine 20MG CAP PO SCH (09:31)
[2022-10-09] MEDS: NICOTINE 14 MG/24 HR TRANSDERMAL TD SCH (09:31)
[2022-10-09] MEDS: LURASIDONE 20 MG TAB (LATUDA) PO SCH (09:31)
[2022-10-09 18:00] VITALS: BP 142/67
[2022-10-09] MEDS: traZODone 50 MG TAB PO PRN (20:06)
[2022-10-10 06:10] VITALS: BP 126/70
[2022-10-10] MEDS: NICOTINE 14 MG/24 HR TRANSDERMAL TD SCH (08:37)
[2022-10-10] MEDS: FLUoxetine 20MG CAP PO SCH (08:37)
[2022-10-10] MEDS: LURASIDONE 20 MG TAB (LATUDA) PO SCH (08:37)
[2022-10-10 16:15] VITALS: BP 140/68
[2022-10-10] MEDS: hydrOXYzine 50 MG TAB PO PRN (18:18)
[2022-10-10] MEDS: traZODone 50 MG TAB PO PRN (21:10)
[2022-10-11 06:34] VITALS: BP 119/67
[2022-10-11] MEDS: NICOTINE 14 MG/24 HR TRANSDERMAL TD SCH (08:48)
[2022-10-11] MEDS: FLUoxetine 20MG CAP PO SCH (08:48)
[2022-10-11] MEDS: LURASIDONE 20 MG TAB (LATUDA) PO SCH (08:48)
[2022-10-11 16:20] VITALS: BP 140/70
[2022-10-11] MEDS: traZODone 50 MG TAB PO PRN (20:04)
[2022-10-12 06:31] VITALS: BP 128/72
[2022-10-12] MEDS: LURASIDONE HCL 40MG TAB (LATUDA) PO SCH (08:17)
[2022-10-12] MEDS: NICOTINE 14 MG/24 HR TRANSDERMAL TD SCH (08:17)
[2022-10-12] MEDS: FLUoxetine 20MG CAP PO SCH (08:17)
[2022-10-12 16:20] VITALS: BP 143/80
[2022-10-12] MEDS: traZODone 50 MG TAB PO PRN (20:59)
[2022-10-13 06:35] VITALS: BP 134/73
[2022-10-13] MEDS: FLUoxetine 20MG CAP PO SCH (08:33)
[2022-10-13] MEDS: LURASIDONE HCL 40MG TAB (LATUDA) PO SCH (08:33)
[2022-10-13] MEDS: NICOTINE 14 MG/24 HR TRANSDERMAL TD SCH (08:33)
[2022-10-13] MEDS: hydrOXYzine 50 MG TAB PO PRN (15:16)
[2022-10-13 19:32] VITALS: BP 116/62
[2022-10-14 06:10] VITALS: BP 124/69
[2022-10-14] MEDS: NICOTINE 14 MG/24 HR TRANSDERMAL TD SCH (09:21)
[2022-10-14] MEDS: LURASIDONE HCL 40MG TAB (LATUDA) PO SCH (09:21)
[2022-10-14] MEDS: FLUoxetine 20MG CAP PO SCH (09:21)
[2022-10-14 16:39] VITALS: BP 132/63
[2022-10-14] MEDS: traZODone 50 MG TAB PO PRN (21:07)
[2022-10-15 06:16] VITALS: BP 129/65
[2022-10-15] MEDS: LURASIDONE HCL 40MG TAB (LATUDA) PO SCH (08:56)
[2022-10-15] MEDS: NICOTINE 14 MG/24 HR TRANSDERMAL TD SCH (08:56)
[2022-10-15] MEDS: FLUoxetine 20MG CAP PO SCH (08:56)
[2022-10-15 16:21] VITALS: BP 127/59
[2022-10-15] MEDS: traZODone 50 MG TAB PO PRN (20:11)
[2022-10-16 06:11] VITALS: BP 120/59
[2022-10-16] MEDS: LURASIDONE HCL 40MG TAB (LATUDA) PO SCH (08:53)
[2022-10-16] MEDS: FLUoxetine 20MG CAP PO SCH (08:53)
[2022-10-16] MEDS: NICOTINE 14 MG/24 HR TRANSDERMAL TD SCH (08:54)
[2022-10-16 16:39] VITALS: BP 100/56
[2022-10-16] MEDS: traZODone 50 MG TAB PO PRN (20:11)
[2022-10-17 06:04] VITALS: BP 110/66
[2022-10-17] MEDS: NICOTINE 14 MG/24 HR TRANSDERMAL TD SCH (08:44)
[2022-10-17] MEDS: FLUoxetine 20MG CAP PO SCH (08:45)
[2022-10-17] MEDS: LURASIDONE HCL 40MG TAB (LATUDA) PO SCH (08:45)
[2022-10-17] MEDS ORDERED: NICO14PA TD (15:15)
[2022-10-17] MEDS ORDERED: LATU40TA2 PO (15:15)
[2022-10-17] MEDS ORDERED: TRAZ-252 PO (15:15)
[2022-10-17] MEDS ORDERED: FLUO20CA22 PO (15:15)
[2022-10-17 18:17] VITALS: BP 118/58
[2022-10-17] MEDS: traZODone 50 MG TAB PO PRN (21:03)
[2022-10-18 06:40] VITALS: BP 111/54
[2022-10-18] MEDS: NICOTINE 14 MG/24 HR TRANSDERMAL TD SCH (07:44)
[2022-10-18] MEDS: FLUoxetine 20MG CAP PO SCH (07:44)
[2022-10-18] MEDS: LURASIDONE HCL 40MG TAB (LATUDA) PO SCH (07:44)
== END 2022-10-18 08:20 | DRG 753 ==
LOC: M ED 15:31 → M ED INP 19:09 → M PSY 23:05
PROVIDERS: ADMIT Psychiatry & Neurology Psychiatry; ATTEND Psychiatry & Neurology Psychiatry
DX: F39 Unspecified mood [affective] disorder (principal); F31.9 Bipolar disorder, unspecified; F15.90 Other stimulant use, unspecified, uncomplicated; F12.90 Cannabis use, unspecified, uncomplicated; F17.200 Nicotine dependence, unspecified, uncomplicated; F10.10 Alcohol abuse, uncomplicated; F60.2 Antisocial personality disorder; F60.3 Borderline personality disorder; Z59.00 Homelessness unspecified

== ENCOUNTER 2023-11-06 10:13 | Emergency (ER) | payer OTHER ==
[~2023-11-06] VITALS: Ht 165.1 cm; Wt 63.9 kg
[~2023-11-06 10:13] MED LIST changes: -DISU1TAB6 PO; +DISU1TAB7 PO; +NICO14PA TD
[2023-11-06] MEDS ORDERED: MULTTAB20 PO (10:37)
[2023-11-06 11:15] LABS: BASO % 0.4 % (0.0-1.0); EOS # 0.1 10^3/uL (0.0-0.5); EOS % 0.8 % (0.0-3.0); HEMATOCRIT 40.6 % (36.0-47.0); HEMOGLOBIN 13.4 g/dl (12.0-15.5); LYMPH # 2.1 10^3/uL (1.5-5.0); LYMPH % 27.1 % (24.0-44.0); MONO # 0.8 10^3/uL (0.0-0.8); MONO % 10.5 % (2.0-8.0); NEUTROPHILS # 4.7 10^3/uL (1.5-8.5); NEUTROPHILS % 60.9 % (36.0-66.0); PLATELET COUNT, AUTOMATED 405 10^3/uL (150-450); RED BLOOD COUNT 4.46 10^6/uL (4.00-5.40); WHITE BLOOD COUNT 7.7 10^3/uL (4.0-10.0)
[2023-11-06 11:40] LABS: ALBUMIN 3.3 G/DL (3.2-5.2); BILIRUBIN,DIRECT 0.1 MG/DL (<0.4); BILIRUBIN,TOTAL 0.3 MG/DL (0.3-1.2); TOTAL PROTEIN 7.4 G/DL (5.7-8.2)
[2023-11-06] MEDS ORDERED: NITROFURANTOIN (MACROBID) 100 MG CAP PO ONE (12:45)
[2023-11-06] MEDS ORDERED: MACR100C43 PO (13:02)
[2023-11-06 13:10] VITALS: BP 103/53; TEMP 98.6; O2SAT 100
== END 2023-11-06 13:12 | disposition home or self-care (01) ==
LOC: M ED 11:14
DX: O26.851 Spotting complicating pregnancy, first trimester (principal); O23.10 Infections of bladder in pregnancy, unspecified trimester; Z3A.08 8 weeks gestation of pregnancy; F19.10 Other psychoactive substance abuse, uncomplicated; Z79.899 Other long term (current) drug therapy

== ENCOUNTER 2024-01-11 13:58 | Emergency (ER) | payer MEDICAID, OTHER ==
[~2024-01-11] VITALS: Ht 165.1 cm; Wt 71.3 kg
[~2024-01-11 13:58] MED LIST changes: +MULTTAB20 PO
[2024-01-11 15:16] LABS: BASO % 0.1 % (0.0-1.0); EOS # 0.1 10^3/uL (0.0-0.5); EOS % 0.6 % (0.0-3.0); HEMATOCRIT 31.5 % (36.0-47.0); HEMOGLOBIN 10.6 g/dl (12.0-15.5); LYMPH # 1.2 10^3/uL (1.5-5.0); LYMPH % 8.7 % (24.0-44.0); MEAN CORPUSCULAR HEMOGLOBIN 29.9 pg (27.0-33.0); MEAN CORPUSCULAR HGB CONC 33.7 g/dl (32.0-36.5); MONO # 1.3 10^3/uL (0.0-0.8); MONO % 9.1 % (2.0-8.0); NEUTROPHILS # 11.4 10^3/uL (1.5-8.5); NEUTROPHILS % 80.4 % (36.0-66.0); PLATELET COUNT, AUTOMATED 368 10^3/uL (150-450); RED BLOOD COUNT 3.54 10^6/uL (4.00-5.40); WHITE BLOOD COUNT 14.1 10^3/uL (4.0-10.0)
[2024-01-11 15:46] LABS: ALKALINE PHOSPHATASE 128 U/L (46-116); ALT/SGPT 34 U/L (7.0-40); AST/SGOT 21 U/L (<34); BILIRUBIN,DIRECT 0.2 MG/DL (<0.4); BILIRUBIN,TOTAL 0.4 MG/DL (0.3-1.2); BLOOD UREA NITROGEN 11 MG/DL (9-23); CALCIUM LEVEL 8.5 MG/DL (8.5-10.1); CARBON DIOXIDE LEVEL 23 MMOL/L (20-31); CHLORIDE LEVEL 102 MMOL/L (98-107); CREATININE FOR GFR 0.57 MG/DL (0.55-1.30); GLOMERULAR FILTRATION RATE > 60.0 (>60); GLUCOSE, FASTING 90 MG/DL (60-100); POTASSIUM SERUM 3.3 MMOL/L (3.5-5.1); SODIUM LEVEL 131 MMOL/L (136-145); TOTAL PROTEIN 5.8 G/DL (5.7-8.2)
[2024-01-11] MEDS: cefTRIAXone SOD 1 GM in D5W MINI-BAG PLUS 50 ML IV ONE (16:14)
[2024-01-11] MEDS: NS 1,000 ML IV ONE (16:14)
[2024-01-11 16:58] LABS: CANNABINOIDS URINE NEGATIVE (NEGATIVE); METHADONE URINE NEGATIVE (NEGATIVE); OPIATES URINE NEGATIVE (NEGATIVE); PHENCYCLIDINE URINE NEGATIVE (NEGATIVE)
[2024-01-11 16:59] LABS: BARBITURATES URINE NEGATIVE (NEGATIVE); BENZODIAZEPINES URINE NEGATIVE (NEGATIVE); COCAINE METABOLITE URINE NEGATIVE (NEGATIVE)
[2024-01-11 17:00] LABS: AMPHETAMINES LEVEL URINE POSITIVE (NEGATIVE)
[2024-01-11] MEDS: ACETAMINOPHEN 325 MG TAB PO ONE (17:04)
[2024-01-11] MEDS ORDERED: IBUP200C28 PO (18:24)
[2024-01-11] MEDS ORDERED: HOME MED LIST COMPLETE! XX SCH (18:25)
[2024-01-11] MEDS ORDERED: CEFD1CAP9 PO (19:22)
[2024-01-11 19:33] VITALS: BP 132/74; TEMP 97.8; O2SAT 100
== END 2024-01-11 19:43 | disposition home or self-care (01) ==
LOC: M ED 13:58
DX: O23.42 Unspecified infection of urinary tract in pregnancy, second trimester (principal); R16.1 Splenomegaly, not elsewhere classified; M54.40 Lumbago with sciatica, unspecified side; F41.9 Anxiety disorder, unspecified; F32.A Depression, unspecified; F17.200 Nicotine dependence, unspecified, uncomplicated; F16.10 Hallucinogen abuse, uncomplicated; Z3A.18 18 weeks gestation of pregnancy; Z79.2 Long term (current) use of antibiotics; Z79.810 Long term (current) use of selective estrogen receptor modulators (SERMs)
CPT/HCPCS: 76775; 80048; 80076; 80307; 81001; 83605; 85025; 87040; 87077; 87088; 87186; 96365; 99284; J0696